=== PATIENT | female | born 1960 | race Caucasian/White ===

== ENCOUNTER 2016-10-04 12:19 | Emergency (ER) | payer BC ==
[2016-10-18 14:40] VITALS: BMI 27.6
== END 2016-10-04 14:42 | disposition home or self-care (01) ==
LOC: D.ER 12:19
DX: J18.9 Pneumonia, unspecified organism (principal); E84.9 Cystic fibrosis, unspecified

== ENCOUNTER → 2016-10-08 08:39 | Outpatient (CLI) | payer BC ==
[~2016-10-08 08:39] MED LIST: EFFEXOR75 MG PO; GEMFIBROZIL600 MG PO; GLUCOPHAGE1000 MG PO; NEURONTIN 300300 MG PO; NORVASC10 MG PO; PLAVIX75 MG PO; VOLTAREN75 MG PO; XODOL 5-300 TA1 EACH PO; ZANAFLEX4 MG PO
[2016-10-18 14:40] VITALS: BMI 27.6
== END | disposition home or self-care (01) ==
LOC: D.MRI 08:39
DX: M54.16 Radiculopathy, lumbar region (principal)

== ENCOUNTER 2016-10-17 11:59 | Inpatient (IN) | payer BC ==
[~2016-10-17] VITALS: Ht 167.6 cm
--- NOTE | ~2016-10-17 | HEMODYNAMI ---
PATIENT:CHRIS ETIENNE MEDICAL RECORD: [id number] : 60 LOCATION:[facility] D.2119 [id number] ADMISSION DATE: 10/18/16 Generatedon:10/23/201614:53 Patient name: CHRIS ETIENNE Patient #: [id number] SSN: [id number] : 1960 Date of study: 10/23/2016 Page: Of Hemodynamic Procedure Report Patient Data Patient Demographics Procedure consent was obtained First Name: CHRIS Gender: Female Last Name: LOWELL : 1960 Middle Initial: E Age: 56 year(s) Patient #: [id number] Race: SSN: [id number] Additional ID: [id number] Contact details Address: [address] [place] [address] [address] State: [place] City: [place] Zip code: [address] Past Medical History Allergies: No known allergies Admission Admission Data Admission Date: 10/18/2016 Admission Time: 17:06 Arrival Date: 10/17/2016 Arrival Time: 21:39 Admit Source: Emergency Insurance Payor: Private department health insurance Room #: D.2119 Height (in.): 66 BSA: 1.87 (m2) Height (cm.): 167.64 BMI: 27.67 (kg/m2) Weight (lbs.): 171.41 Weight (kg.): 77.75 Lab Results Lab Result Date: 10/23/2016 Lab Result Time: 0:00 Biochemistry Name Units Result Min Max BUN mg/dl 17 --(---*)-- 7 18 Creatinine mg/dl 0.7 --(*---)-- 0.6 1.3 CBC Name Units Result Min Max Hemoglobin g/dl 10.8 *-(----)-- 13.5 17.5 Procedure Procedure Types Cath Procedure PCI Procedure Coronary Stent Initial Procedure Description Procedure Date Procedure Date: 10/23/2016 Procedure Start Time: 14:32 Procedure End Time: 14:50 Procedure Staff Name Function Jimy Chamorro MD Performing Physician Alicia Graham RT Scrub Bonnie Michel RN Nurse Aydin Parra RT Monitor Indication Angina Procedure Data Cath Procedure Fluoroscopy Diagnostic fluoroscopy Total fluoroscopy Time: 5.5 time: 5.5 min min Diagnostic fluoroscopy Total fluoroscopy dose: 550 dose: 550 mGy mGy Contrast Material Contrast Material Type Amount (ml) Isovue 300 78 Entry Location Entry Primary Successful Side Size Upsize Upsize Entry Closure Succes sful Closure Location (Fr) 1 (Fr) 2 (Fr) Remarks Device Remarks Femoral Right 6 Fr Exoseal artery Short Procedure Complications No complications Procedure Medications Medication Administration Route Dosage Oxygen 2 l/min Heparin Flush Bag added to field 2 bags (1000units/500ml NS) Lidocaine 2% added to field 20 Versed I.V. 1 mg Fentanyl I.V. 50 mcg Heparin Bolus I.V. 4000 units Lopressor I.V. 5 mg Hemodynamics Rest BSA: 1.87 (m2) HGB: 10.8 (g/dl) O2 Consumption: Estimated: 206.1 (ml/min) O2 Con sumption indexed: Estimated:110.21 (ml/min/m) Heart Rate: 108 (bpm) Snapshots Pre Cath Intra NCS Post Cath Vital Signs Time Heart Resp SPO2 NIBP (mmHg) Rhythm Pain Sedation Rate (ipm) (%) Status Level (bpm) 14:17:44 109 26 99 158/97(117) NSR 0 (11) 10(A) , No pain 14:22:00 108 27 98 158/100(123) NSR 0 (11) 10(A) , No pain 14:26:18 108 30 98 160/97(118) NSR 0 (11) 10(A) , No pain 14:30:34 107 27 98 156/96(138) NSR 0 (11) 10(A) , No pain 14:34:47 94 26 97 153/86(122) NSR 0 (11) 10(A) , No pain 14:39:00 92 26 97 140/88(111) NSR 0 (11) 10(A) , No pain 14:43:10 91 26 97 142/100(110) NSR 0 (11) 10(A) , No pain 14:47:22 95 24 97 150/89(114) NSR 0 (11) 10(A) , No pain Medications Time Medication Route Dose Verified Delivered Reason Notes Effec tiveness by by 14:16:55 Oxygen 2 Jimy Mayecca Per l/min [facility] canales MD 14:17:03 Heparin Flush added 2 Jimy Ahn used for Bag to bags [facility] procedure (1000units/500ml field MD HENDERSON NS) 14:17:10 Lidocaine 2% added 20ml Jimy Ahn used for to vial [facility] procedure field MD HENDERSON 14:27:55 Versed I.V. 1 mg Jimy Bonnie for [facility] Monster Michel RN sedation 14:28:01 Fentanyl I.V. 50 Jimy Mayecca for mcg [facility] Monster Michel RN sedation 14:33:28 Heparin Bolus I.V. 4000 Jimy Mayecca Per units [facility] canales MD 14:36:48 Lopressor I.V. 5 mg Jimy Neilca Per [facility] canales MD Procedure Log Time Note 13:30:49 Bonnie Michel RN sent for patient. Start room use. 13:47:16 Informed consent obtained and on chart 13:47:26 Diagnostic Cath Status : Elective 13:48:45 Indication : Angina 13:48:56 Time tracking: Regular hours 13:49:00 Plan of Care:Hemodynamics will remain stable., Cardiac rhythm will remain stable., Comfort level will be maintained., Respiratory function will remain adequate., Patient/ family verbilizes understanding of procedure., Procedure tolerated without complication., Recovers from procedure without complications.. 13:49:30 Patient received from Med II to CCL 1 Alert and oriented. Tansferred to table in Supine position. 13:49:31 Warm blankets applied, and amos hugger turned on for patient comfort. 13:49:32 Correct patient and procedure confirmed by team. 13:49:32 ECG and BP/O2 sat monitors applied to patient. 14:16:43 Vital chart was started 14:16:55 Oxygen 2 l/min was given by Bonnie Michel RN; Per physician; 14:17:03 Heparin Flush Bag (1000units/500ml NS) 2 bags added to field was given by Jimy Chamorro MD; used for procedure; 14:17:10 Lidocaine 2% 20ml vial added to field was given by Jimy Chamorro MD; used for procedure; 14:17:35 Baseline sample Acquired. 14:17:38 Rhythm: sinus rhythm 14:17:42 Full Disclosure recording started 14:17:55 H&P Date Dictated: 10/17/2016 Within 30 days and on chart.. 14:17:58 Pre-procedure instructions explained to patient. 14:17:58 Pre-op teaching completed and patient verbalized understanding. 14:18:00 Family in waiting room. 14:18:01 Patient NPO since Midnight. 14:18:09 Patient allergic to No known allergies 14:18:11 Is the patient allergic to Iodine/contrast media? No. 14:23:37 Is patient on blood thinner?Yes 14:23:40 ACC The patient was administered the following blood thiners within the last 24 hours: ACCPlavix 14:23:43 Patient diabetic? No. 14:23:44 ----Pre-sedation anethsthesia assessment.---- 14:23:46 Previous problem with sedation/anesthesia? No ? 14:23:48 Snore? Yes 14:23:51 Sleep apnea? No 14:23:53 Deviated septum? No 14:23:54 Opens mouth fully? Yes 14:23:55 Sticks out tongue? Yes 14:23:57 Airway obstruction? No ? 14:24:00 Dentures? Yes ye in 14:24:04 Pre procedure: right dorsailis pedis pulse 1+ Palpable, but thready & weak; easily obliterated 14:24:09 Patient pain scale 0/10 ?. 14:24:52 IV started by Bonnie Michel RN inleft hand with a 22 gauge IV catheter with 0.9% NaCl at 10ml/hr. 14:25:30 Lab Result : BUN 17 mg/dl 14:25:30 Lab Result : Creatinine 0.7 mg/dl 14:25:30 Lab Result : Hemoglobin 10.8 g/dl 14:25:30 Hemodynamic formulas in Rest were re-calculated based on hemoglobin value from 10/23/2016 12:00:00 AM 14:25:54 Lab results completed and on chart. 14:25:59 Left groin area was prepped with chlora-prep and draped in sterile fashion 14:26:00 Alarms reviewed by Roseann Oden 14:: Sharps counted by scrub and verified by R.N. 14:: --------ALL STOP TIME OUT------ :: Final Timeout: patient, procedure, and site verified with staff and physician. All members of the team are in agreement. 14:26:05 Left groin site verified by team. 14:26:08 Physical assessment completed. ASA score P 2 - A patient with mild systemic disease as per Jimy Chamorro MD. 14:26:11 Sedation plan: IV Moderate Sedation Versed, Fentanyl 14:27:55 Versed 1 mg I.V. was given by Bonnie Michel RN; for sedation; 14:: Fentanyl 50 mcg I.V. was given by Bonnie Michel RN; for sedation; 14:32:02 Use device set Femoral PCI 14:32:03 Acist Syringe opened to sterile field. 14:32:03 Acist Hand Control opened to sterile field. 14:32:04 Bag Decanter opened to sterile field. 14:32:04 Cardinal Cath Pack opened to sterile field. 14:32:05 Terumo 6Fr [place] Sheath opened to sterile field. 14:32:05 St Mello 260cm J .035 wire opened to sterile field. 14:32:06 Merit BasixCompak Inflation Kit opened to sterile field. 14:32:07 Acist Manifold opened to sterile field. 14:32:10 IV Extension Set opened to sterile field. 14:32:23 Procedure started. 14:32:57 Local anesthetic to right femoral artery with Lidocaine 2% by Jimy Chamorro MD.INITIAL ACCESS ONLY 14:33:07 A 6 Fr Short sheath was inserted into the Right Femoral artery 14:33:28 Heparin Bolus 4000 units I.V. was given by Bonnie Michel RN; Per physician; 14:33:50 ACC PCI Site: mLAD has 80% stenosis. 14:33:53 ACC Pre-intervention YOUSUF Flow is 3. 14:34:49 6 Fr JL 4 guide catheter was inserted over the wire 14:34:54 COUGAR wire advanced. 14:36:22 Inflation number: 1 A Abington Compare And Share Haralson 3.0 X 15 balloon was prepped and advanced across the Dist LAD, then inflated to 8 RAMÍREZ for 0:10 (min:sec). 14:36:48 Lopressor 5 mg I.V. was given by Bonnie Michel RN; Per physician; 14:37:13 Inflation number: 1 The Abington Compare And Share Haralson 3.0 X 15 balloon was reinflated across the Prox LAD, to 10 RAMÍREZ for 0:20 (min:sec). 14:37:23 Balloon removed over the wire. 14:40:18 Inflation Number: 2 A Medtronic Integrity 3.0 X 15 stent was prepped and advanced across the Dist LAD. The stent was deployed at 12 RAMÍREZ for 0:28 (min:sec). 14:40:45 Stent catheter was removed intact over wire. 14:43:24 Inflation Number: 2 A Medtronic Integrity 3.5 X 15 stent was prepped and advanced across the Prox LAD. The stent was deployed at 12 RAMÍREZ for 0:38 (min:sec). 14:44:17 Stent catheter was removed intact over wire. 14:44:18 Wire removed. 14:44:19 Guide catheter removed. 14:46:26 Sheath removed intact; hemostasis achieved with Exoseal to the Right Femoral artery. 14:46:28 Procedure ended.(Physican Out) 14:46:41 Fluoroscopy time 05.50 minutes. 14:46:46 Flurop Dose total: 550 14:46:46 Fluoroscopy dose: 550 mGy 14:48:27 Contrast amount:Isovue 300 78ml. 14:48:28 Sharps counted by scrub and verified by R.N. 14:48:29 Insertion/operative site no bleeding no hematoma. 14:48:32 Post-op/insertion site Left Femoral artery dressed using a 4 x 4 and Tegaderm. 14:48:39 Post left femerol artery:stable 14:48:40 Post Procedure Pulses reassessed and unchanged 14:48:42 Post procedure: left dorsailis pedis pulse 1+ Palpable, but thready & weak; easily obliterated. 14:48:48 Post procedure rhythm: sinus tachycardia 14:48:50 Post procedure instruction explained to patient.Patient verbalizes understanding. 14:49:11 Procedure type changed to Cath procedure, PCI procedure, Coronary Stent Initial 14:49:16 Procedure and supply charges have been captured, reviewed, submitted and are correct. 14:49:26 Cordis 6Fr Exoseal opened to sterile field. 14:50:07 Tegaderm 4 x 4 opened to sterile field. 14:50:09 Medtronic Launcher 6Fr JL 4.0 guide catheter opened to sterile field. 14:50:18 Valdivia [place] 300cm 0.014 guide wire opened to sterile field. 14:50:25 Procedure Complication : No complications 14:50:36 Vital chart was stopped 14:50:36 See physician's report for complete and final results. 14:50:38 Report given to PCU. 14:50:42 Patient transfered to PCU with Bed. 14:50:43 Procedure ended. 14:50:43 Full Disclosure recording stopped 14:50:49 End room use (Document Last) Intervention Summary Intervention Notes Time ActionType Lesion and Equipment Action# Pressure Duration Attributes Used 14:36:22 Inflate Dist LAD Abington 1 8 00:10 balloon Sci Haralson 3.0 X 15 balloon 14:37:13 Reinflate Prox LAD Abington 1 10 00:20 balloon Sci Haralson 3.0 X 15 balloon 14:40:18 Place stent Dist LAD Medtronic 2 12 00:28 Integrity 3.0 X 15 stent 14:43:24 Place stent Prox LAD Medtronic 2 12 00:38 Integrity 3.5 X 15 stent Device Usage Item Name Manufacture Quantity Catalog Number Hospital Part Current Mini mal Lot# / Charge Number Stock Stock Serial# Code Acist Acist 1 [id number] [id number] [id number] [id number] 20 Syringe Medical Systems Inc Acist Hand Acist 1 21582 215371 823124 963329 5 Control Medical Systems Inc Bag Microtek 1 2002S 140653 23743 839736 5 DecKynetx Medical Inc. Cardinal Cardinal [address] 785828 48240 545412 5 Cath Trendzo Terumo 6Fr Terumo 1 [id number] 243634 210491 980878 [address] Mello St Mello 1 906524 100728 189531 486162 30 260cm J .035 wire Merit Merit 1 [id number] 292738 624561 967762 15 Supportie Medical Inflation Kit Acist Acist 1 49995 822290 173019 302113 5 Manifold Medical Systems Inc IV Hospira 1 21359-77 518412 03455 708760 5 Extension Set Abington Sci Abington 1 [id number] 133806 159238 448127 1 [id number] Haralson Scientific 3.0 X 15 balloon Medtronic Medtronic 1 [id number] 179705 298414 249789 0 [id number] Integrity 3.0 X 15 stent Medtronic Medtronic 1 [id number] 041120 510983 659137 8 [id number] Integrity 3.5 X 15 stent Cordis 6Fr Cardinal 1 EX600 022047 524650 933371 10 [facility] Tegade 4 3M 1 1626W 923161 751178 971242 5 x 4 Medtronic Medtronic 1 [id number] 430785 62743 280732 1 Launcher 6Fr JL 4.0 guide catheter Valdivia Valdivia 1 [id number] 842998 568094 059262 1 [place] Vascular 300cm 0.014 guide wire Signature Audit [place] Stage Time Signature Unsigned Intra-Procedure 10/23/2016 Aydin Parra 2:53:34 PM RT(R) Signatures Monitor : Aydin Parra RT Signature : Date : Time : [place] [address] [place] [address]
--- NOTE | ~2016-10-17 | HEMODYNAMI ---
PATIENT:CHRIS ETIENNE MEDICAL RECORD: [id number] : 60 LOC[id number] ADMISSION DATE: 10/17/16 Generatedon:10/18/201614:57 Patient name: CHRIS ETIENNE Patient #: [id number] SSN: [id number] : 1960 Date of study: 10/18/2016 Page: Of Hemodynamic Procedure Report Patient Data Patient Demographics Procedure consent was obtained First Name: CHRIS Gender: Female Last Name: LOWELL : 1960 Middle Initial: E Age: 56 year(s) Patient #: [id number] Race: SSN: [id number] Additional ID: [id number] Contact details Address: [address] [place] [address] [address] State: [place] City: [place] Zip code: [address] Past Medical History Allergies: No known allergies Admission Admission Data Admission Date: 10/17/2016 Admission Time: 21:39 Arrival Date: 10/17/2016 Arrival Time: 21:39 Admit Source: Emergency Insurance Payor: Private department health insurance Room #: D.2119 Height (in.): 66 BSA: 1.87 (m2) Height (cm.): 167.64 BMI: 27.67 (kg/m2) Weight (lbs.): 171.41 Weight (kg.): 77.75 Lab Results Lab Result Date: 10/18/2016 Lab Result Time: 0:00 Biochemistry Name Units Result Min Max Creatinine mg/dl 1.5 --(----)-* 0.6 1.3 Troponin l ng/ml 2.176 --(----)-* 0 0.06 CBC Name Units Result Min Max Hemoglobin g/dl 12.2 *-(----)-- 13.5 17.5 Procedure Procedure Types Cath Procedure Diagnostic Procedure [facility] w/Coronaries PCI Procedure Coronary Stent Initial Procedure Description Procedure Date Procedure Date: 10/18/2016 Procedure Start Time: 14:25 Procedure End Time: 14:51 Procedure Staff Name Function Jimy Chamorro MD Performing Physician Gretel Gaspar RT Scrub Maday Meza RN Nurse Oliver Khalil RN Reference Library Assistant Delfino Al RT Monitor Alicia Graham RT Monitor Procedure Data Cath Procedure Fluoroscopy Diagnostic fluoroscopy Total fluoroscopy Time: 7.2 time: 7.2 min min Diagnostic fluoroscopy Total fluoroscopy dose: 663 dose: 663 mGy mGy Contrast Material Contrast Material Type Amount (ml) Isovue 370 130 Entry Location Entry Primary Successful Side Size Upsize Upsize Entry Closure Succes sful Closure Location (Fr) 1 (Fr) 2 (Fr) Remarks Device Remarks Femoral Right 5 Fr 6 Fr Exoseal artery Short Estimated blood loss: 5 ml Diagnostic catheters Device Type Used For End Catheter Placement Cordis 5Fr JL 4.0 Procedure Catheter (MP) Cordis 5Fr 3DRC Catheter Procedure (MP) Cordis 5Fr Pigtail Procedure Catheter (MP) Procedure Complications No complications Procedure Medications Medication Administration Route Dosage Oxygen NC 2 l/min Lidocaine 2% added to field 20 Heparin Flush Bag added to field 2 bags (1000units/500ml NS) 0.9% NaCl I.V. 100 ml/hr Versed I.V. 2 mg Fentanyl I.V. 100 mcg Versed I.V. 1 mg Fentanyl I.V. 50 mcg Heparin Bolus I.V. 5000 units Integrilin (Bolus I.V. 7.3 ml 2mg/ml) Fentanyl I.V. 50 mcg Versed I.V. 1 mg Fentanyl I.V. 50 mcg Plavix P.O. 600 mg Hemodynamics Rest BSA: 1.87 (m2) HGB: 12.2 (g/dl) O2 Consumption: Estimated: 200.41 (ml/min) O2 Co nsumption indexed: Estimated:107.17 (ml/min/m) Heart Rate: 100 (bpm) Pressure Samples Time Site Value (mmHg) Purpose Heart Use Rate(bpm) 14:32 LV 111/15,21 Snapshot 103 Gradients Valve Time Site Site Mean SEP/DFP Peak To Heart Use 1 2 (mmHg) (sec/min) Peak Rate (mmHg) (bpm) Aortic 14:33 LV AO 103 Snapshots Pre Cath Intra NCS Post Cath Vital Signs Time Heart Resp SPO2 etCO2 [id number] NIBP (mmHg) Rhythm Pain Sedation Rate (ipm) (%) (mmHg) (mmHg) Status Level (bpm) 13:23:27 97 22 94 0 0 138/85(106) NSR 0 (11) 10(A) , No pain 13:27:41 100 25 94 0 0 133/89(103) NSR 0 (11) 10(A) , No pain 13:31:53 98 21 93 0 0 134/86(106) NSR 0 () 10(A) , No pain 13:36:09 98 20 95 0 0 130/79(99) NSR 0 () 10(A) , No pain 13:40:19 99 24 94 0 0 131/83(98) NSR 0 () 10(A) , No pain 13:44:26 100 23 95 0 0 125/82(104) NSR 0 () 10(A) , No pain 13:48:36 102 23 95 0 0 129/83(97) NSR 0 () 10(A) , No pain 13:52:44 103 23 94 0 0 125/82(97) NSR 0 () 10(A) , No pain 13:56:58 102 23 94 0 0 123/79(103) NSR 0 () 10(A) , No pain 14:01:08 101 22 95 0 0 124/81(97) NSR 0 () 10(A) , No pain 14:05:20 102 23 96 0 0 123/79(95) NSR 0 () 10(A) , No pain 14:09:30 102 24 95 0 0 122/78(91) NSR 0 () 10(A) , No pain 14:13:40 101 25 96 0 0 120/76(94) NSR 0 (11) 10(A) , No pain 14:17:51 100 24 96 0 0 120/76(94) NSR 0 (11) 10(A) , No pain 14:21:59 99 24 95 0 0 116/76(98) NSR 0 (11) 9(A) , No pain 14:26:09 98 24 96 0 0 123/80(96) NSR 0 (11) 9(A) , No pain 14:30:17 99 16 96 0 0 130/88(105) NSR 0 (11) 9(A) , No pain 14:34:29 104 17 96 0 0 148/91(115) NSR 0 (11) 9(A) , No pain 14:38:41 99 23 94 0 0 127/81(98) NSR 0 (11) 9(A) , No pain 14:42:55 96 21 94 0 0 114/75(93) NSR 0 (11) 9(A) , No pain 14:47:05 96 21 95 0 0 117/74(89) NSR 0 (11) 9(A) , No pain 14:51:13 97 20 95 0 0 127/85(102) NSR 0 (11) 10(A) , No pain Medications Time Medication Route Dose Verified Delivered Reason Notes Effectiveness by by 13:27:32 Oxygen NC 2 Jimy Buffie used for l/min St. Monster Meza RN procedure 13:27:39 Lidocaine 2% added 20ml Jimy Jimy for local to vial [facility] anesthetic field MD HENDERSON 13:27:44 Heparin Flush added 2 Jimy Jimy used for Bag to bags [facility] procedure (1000units/500ml field MD HENDERSON NS) 13:27:54 0.9% NaCl I.V. 100 Jimy Buffie Per physician ml/hr [facility]. Monster Meza RN, MD 14:17:55 Versed I.V. 2 mg Jimy Buffie for sedation [facility]. Monster Meza RN, MD 14:18:02 Fentanyl I.V. 100 Jimy Buffie for sedation mcg [facility] Monster Meza RN, MD 14:26:50 Versed I.V. 1 mg Jimy Buffie for sedation [facility]. Monster Meza RN, MD 14:26:54 Fentanyl I.V. 50 Jimy Buffie for sedation mcg [facility] Monster Meza RN, MD 14:34:41 Heparin Bolus I.V. 5000 Jimy Buffie for verifi ed units [facility]. Monster Meza RN anticoagulation with dr MD santiago 14:35:51 Integrilin I.V. 7.3 Jimy Buffie for (Bolus 2mg/ml) ml St. Monster Meza RN antiplatelet MD therapy 14:36:43 Fentanyl I.V. 50 Jimy Buffie for sedation mcg [facility] Monster Meza RN, MD 14:36:54 Versed I.V. 1 mg Jimy Buffie for sedation [facility]. Monster Meza RN, MD 14:38:40 Fentanyl I.V. 50 Jimy Nassar for sedation mcg [facility] Monster Meza RN, MD 14:52:03 Plavix P.O. 600 Jimy Nass[address] for mg [facility] Monster Meza RN antiplatelet MD therapy Procedure Log Time Note 12:49:02 Admit Source: Emergency department 12:49:08 Oliver Khalil RN sent for patient. Start room use. 12:49:09 Time tracking: Regular hours 12:49:13 Plan of Care:Hemodynamics will remain stable., Cardiac rhythm will remain stable., Comfort level will be maintained., Respiratory function will remain adequate., Patient/ family verbilizes understanding of procedure., Procedure tolerated without complication., Recovers from procedure without complications.. 12:51:36 ACC Patient presents with Non-STEMI CCS Anginal Class 3--Marked limitation of physical activity, angina occurs with ordinary activity.. 12:51:40 Diagnostic Cath status Urgent 12:51:46 ACCPatient has been prescribed/administered the following anti-anginal medication within the last 2 weeks: None 12:51:57 H&P Date Dictated: 10/18/2016 Within 30 days and on chart.. 12:54:11 Patient allergic to No known allergies 12:54:16 Insurance Payor : Private health insurance 12:54:23 Patient Height : 66 cm 12:54:28 Patient Weight : 171.41 kg 12:55:45 Lab Result : Hemoglobin 12.2 g/dl 12:55:45 Lab Result : Troponin l 2.176 ng/ml 12:55:45 Lab Result : Creatinine 1.5 mg/dl 12:56:03 ACC The patient was administered the following blood thiners within the last 24 hours: None 13:08:53 Patient received from PCU to CCL 2 Alert and oriented. Tansferred to table in Supine position. 13:08:54 Warm blankets applied, and amos hugger turned on for patient comfort. 13:08:54 Correct patient and procedure confirmed by team. 13:08:55 Signed procedure consent form obtained from patient. 13:08:56 ECG and BP/O2 sat monitors applied to patient. 13:08:57 Full Disclosure recording started 13:18:10 Vital chart was started 13:22:27 Baseline sample Acquired. 13:22:32 Rhythm: sinus tachycardia 13:22:35 Pre-procedure instructions explained to patient. 13:22:36 Pre-op teaching completed and patient verbalized understanding. 13:22:47 Family in patients room. 13:22:49 Patient NPO since Midnight. 13:22:52 Is the patient allergic to Iodine/contrast media? No. 13:22:59 Is patient on blood thinner?No 13:23:02 Patient diabetic? Yes. 13:23:03 If diabetic: On Metformin? Yes 13:25:48 Previous problem with sedation/anesthesia? No ? 13:25:50 Snore? Yes 13:25:51 Sleep apnea? No 13:25:52 Deviated septum? No 13:25:53 Opens mouth fully? Yes 13:25:54 Sticks out tongue? Yes 13:26:30 Airway obstruction? Yes restrictive airway diesease 13:26:33 Dentures? No ? 13:26:38 Pre procedure: right dorsailis pedis pulse 1+ Palpable, but thready & weak; easily obliterated 13:26:40 Patient pain scale 0/10 ?. 13:26:50 IV patent on arrival in left forearm with 0.9% NaCl at [facility]. 13:26:54 Lab results completed and on chart. 13:26:59 Right groin area was prepped with chlora-prep and draped in sterile fashion 13:27:00 Alarms reviewed by R. N. 13:27:01 Sharps counted by scrub and verified by R.N. 13:27:20 Use device set Femoral Dx 13:27:21 Tegaderm 4 x 4 opened to sterile field. 13:27:22 Acist Syringe opened to sterile field. 13:27:23 Bag Decanter opened to sterile field. 13:27:23 Cardinal Cath Pack opened to sterile field. 13:27:26 Acist Manifold opened to sterile field. 13:27:27 Acist Hand Control opened to sterile field. 13:27:28 Terumo 5Fr [place] Sheath opened to sterile field. 13:27:28 St Mello 260cm J .035 wire opened to sterile field. 13:27:29 Cordis Infinity 5Fr Multipack catheter opened to sterile field. 13:27:32 Oxygen 2 l/min NC was given by Maday Meza RN; used for procedure; 13:27:39 Lidocaine 2% 20ml vial added to field was given by Jimy Chamorro MD; for local anesthetic; 13:27:44 Heparin Flush Bag (1000units/500ml NS) 2 bags added to field was given by Jimy Chamorro MD; used for procedure; 13:27:54 0.9% NaCl 100 ml/hr I.V. was given by Maday Meza RN; Per physician; 13:29:20 Physician paged 13:33:02 If on Metformin: Last Dose? 10/17/2016 13:37:03 Zero performed for pressure channel P1 13:37:13 Zero performed for pressure channel P1 14:17:30 Physician arrived 14:17:30 --------ALL STOP TIME OUT------ 14:17:31 Final Timeout: patient, procedure, and site verified with staff and physician. All members of the team are in agreement. 14:17:33 Right groin site verified by team. 14:17:35 Physical assessment completed. ASA score P 2 - A patient with mild systemic disease as per Jimy Chamorro MD. 14:17:39 Sedation plan: IV Moderate Sedation Versed, Fentanyl 14:17:55 Versed 2 mg I.V. was given by Maday Meza RN; for sedation; 14:18:02 Fentanyl 100 mcg I.V. was given by Maday Meza RN; for sedation; 14:24:58 Procedure started. 14:25:12 Local anesthetic to right femoral artery with Lidocaine 2% by Jimy Chamorro MD.INITIAL ACCESS ONLY 14:25:30 A 5 Fr sheath was inserted into the Right Femoral artery 14:26:50 Versed 1 mg I.V. was given by Maday Meza RN; for sedation; 14:26:54 Fentanyl 50 mcg I.V. was given by Maday Meza RN; for sedation; 14:27:11 A Cordis 5Fr JL 4.0 Catheter (MP) was advanced over the wire and used for Procedure. 14:27:45 LCA angiography performed. 14:28:59 Catheter removed. 14:29:10 A Cordis 5Fr 3DRC Catheter (MP) was advanced over the wire and used for Procedure. 14:30:38 RCA angiography performed. 14:30:46 Catheter removed. 14:31:56 A Cordis 5Fr Pigtail Catheter (MP) was advanced over the wire and used for Procedure. 14:32:29 LV gram done using TRINIDAD 14:32:31 LV hemodynamics recorded. 14:32:39 LV Function : Normal 14:32:46 EF : 55 % 14:33:52 Terumo 6Fr [place] Sheath opened to sterile field. 14:33:53 Valdivia Whisper J 300cm 0.014 guide wire opened to sterile field. 14:33:56 Catheter removed. 14:33:59 Proceeding to intervention. 14:34:23 Medtronic Launcher 6Fr JL 4.0 guide catheter opened to sterile field. 14:34:38 Ultragenyx Pharmaceutical BasixCompak Inflation Kit opened to sterile field. 14:34:41 Heparin Bolus 5000 units I.V. was given by Maday Meza RN; for anticoagulation; verified with dr santiago 14:35:14 Sheath upsized to a 6 Fr Short. 14:35:51 Integrilin (Bolus 2mg/ml) 7.3 ml I.V. was given by Maday Meza RN; for antiplatelet therapy; 14:35:52 6 Fr JL 4 guide catheter was inserted over the wire 14:36:43 Fentanyl 50 mcg I.V. was given by Maday Meza RN; for sedation; 14:36:54 Versed 1 mg I.V. was given by Maday Meza RN; for sedation; 14:37:41 WHISPER wire advanced. 14:38:40 Fentanyl 50 mcg I.V. was given by Maday Meza RN; for sedation; 14:38:41 Inflation number: 1 A [place] Sci Lipscomb 3.0 X 15 balloon was prepped and advanced across the Mid CX, then inflated to 12 RAMÍREZ for 0:30 (min:sec). 14:40:04 Balloon removed over the wire. 14:42:30 Inflation number: 2 A [place] Sci Lipscomb 2.0 X 15 balloon was prepped and advanced across the Mid CX, then inflated to 8 RAMÍREZ for 0:30 (min:sec). 14:43:15 Inflation number: 3 The [place] Sci Lipscomb 2.0 X 15 balloon was reinflated across the Mid CX, to 10 RAMÍREZ for 0:30 (min:sec). 14:43:46 Balloon removed over the wire. 14:46:21 Inflation Number: 4 A Medtronic Integrity 3.0 X 18 stent was prepped and advanced across the Mid CX. The stent was deployed at 14 RAMÍREZ for 0:30 (min:sec). 14:47:37 Wire removed. 14:47:38 Guide catheter removed. 14:49:28 Cordis 6Fr Exoseal opened to sterile field. 14:49:45 Sheath removed intact; hemostasis achieved with Exoseal to the Right Femoral artery. 14:49:47 Procedure ended.(Physican Out) 14:50:04 Fluoroscopy time 07.20 minutes. 14:50:08 Fluoroscopy dose: 663 mGy 14:50:08 Flurop Dose total: 663 14:50:13 Contrast amount:Isovue 370 130ml. 14:50:15 Sharps counted by scrub and verified by R.N. 14:50:17 Insertion/operative site no bleeding no hematoma. 14:50:19 Post-op/insertion site Right Femoral artery dressed using a 4 x 4 and Tegaderm. 14:50:22 Post right femoral artery:stable 14:50:25 Post Procedure Pulses reassessed and unchanged 14:50:28 Post procedure rhythm: unchanged. 14:50:34 Estimated blood loss: 5 ml 14:50:36 Post procedure instruction explained to patient.Patient verbalizes understanding. 14:50:37 Patient needs reinforcement of post procedure teaching. 14:50:51 Procedure type changed to Cath procedure, Diagnostic procedure, LHC, LHC w/Coronaries, PCI procedure, Coronary Stent Initial 14:50:52 Procedure and supply charges have been captured, reviewed, submitted and are correct. 14:50:57 Procedure Complication : No complications 14:50:59 Vital chart was stopped 14:50:59 See physician's report for complete and final results. 14:51:04 Report given to [facility]. 14:51:06 Patient transfered to [facility] with Stretcher. 14:51:08 Procedure ended. 14:51:08 Full Disclosure recording stopped 14:51:32 ACC-PCI Only Patient was given prescriptions, or instructed by Jimy Chamorro MD to start/continue the following medications upon discharge: Plavix 14:51:33 End room use (Document Last) 14:52:03 Plavix 600 mg P.O. was given by Maday Meza RN; for antiplatelet therapy; 14:52:48 Arrival Date: 10/17/2016 9:39:00 PM Intervention Summary Intervention Notes Time ActionType Lesion and Equipment Action# Pressure Duration Attributes Used 14:38:41 Inflate Mid CX [place] 1 12 00:30 balloon Sci Lipscomb 3.0 X 15 balloon 14:42:30 Inflate Mid CX [place] 2 8 00:30 balloon Sci Lipscomb 2.0 X 15 balloon 14:43:15 Reinflate Mid CX [place] 3 10 00:30 balloon Sci Lipscomb 2.0 X 15 balloon 14:46:21 Place stent Mid CX Medtronic 4 14 00:30 Integrity 3.0 X 18 stent Device Usage Item Name Manufacture Quantity Catalog Number Hospital Part Current Mini mal Lot# / Charge Number Stock Stock Serial# Code Tegaderm 4 3M 1 [id number] 086594 866732 5 x 4 Acist Acist 1 16642 630793 776291 840987 20 Syringe Medical Systems Inc Bag Microtek 1 2002S 672417 84762 126235 5 Decanter Medical Inc. Cardinal Cardinal 1 [id number] 585431 84144 903626 5 Cath Pack Health Acist Acist 1 25475 218843 901096 457756 5 Broadersheet Medical Systems Inc Acist Hand Acist 1 25079 831606 381547 392059 5 AJ Consulting Medical Systems Inc Terumo 5Fr Terumo 1 [id number] 288891 028455 967987 [address] St Mello 1 526891 015410 173285 785283 30 260cm J .035 wire Cordis Cardinal 1 [id number] 648508 45238 766193 30 Infinity Health 5Fr Multipack catheter Cordis 5Fr Cardinal 1 [id number] 5 JL 4.0 Health Catheter (MP) Cordis 5Fr Cardinal 1 424716 5 3DRC Health Catheter (MP) Cordis 5Fr Cardinal 1 639246 5 Pigtail Health Catheter (MP) Terumo 6Fr Terumo 1 [id number] 317266 243506 985375 40 [place] Sheath Valdivia Valdivia 1 [id number] 796305 071101 964713 5 Whisper J Vascular 300cm 0.014 guide wire Medtronic Medtronic 1 [id number] 392505 71966 643486 1 Launcher 6Fr JL 4.0 guide catheter Merit Merit 1 NS2329 812805 802175 744733 15 Alces Technology Medical Inflation Kit [place] Sci Brookings 1 [id number] 004335 681807 621988 1 [id number] Lipscomb Scientific 3.0 X 15 balloon [place] Sci [place] 1 [id number] 228287 768499 705843 1 [id number] Lipscomb Scientific 2.0 X 15 balloon Medtronic Medtronic 1 [id number] 564379 262438 408766 3 [id number] Integrity 3.0 X 18 stent Cordis 6Fr Cardinal 1 EX600 375199 590956 035730 10 [facility] Health Signature Audit [place] Stage Time Signature Unsigned Intra-Procedure 10/18/2016 Alicia Graham 2:57:05 PM RT(R) Signatures Monitor : Delfino lA RT Signature : Date : Time : Monitor : Alicia Graham RT Signature : Date : Time : [place] [id number] SHAKEEL CASTILLO [id number]
[2016-10-17 15:51] LABS: BASOPHILS 0.2 % (0.0-2.0); EOSINOPHILS 0.1 % (0-7); HEMATOCRIT 36.7 % (36.0-48.0); HEMOGLOBIN 13.1 g/dL (12-16); IMMATURE GRANULOCYTES 0.8 % (0-5); LYMPHOCYTES 5.2 % (15-50); MCH 30.4 pg (26.0-34.0); MCHC 35.7 g/dL (31.0-37.0); MCV 85.2 fL (80.0-100.0); MEAN PLATELET VOLUME 11.5 fL (7.4-10.4); MONOCYTES 0.6 % (2-11); NEUTROPHILS 93.1 % (40-80); PLATELET COUNT 176 10x3/uL (130-400); RBC 4.31 10x6/uL (4.00-5.40); RDW 12.5 % (11.5-14.5); WBC 9.8 10x3/uL (4.8-10.8)
[2016-10-17 17:12] LABS: ALBUMIN 2.3 g/dL (3.4-5.0); ANION GAP 19.6 mmol/L (8-16); BILIRUBIN - TOTAL 0.59 mg/dL (0.2-1.3); CALCIUM 9.4 mg/dL (8.5-10.1); CARBON DIOXIDE 20.9 mmol/L (21.0-32.0); CREATININE - SERUM 1.7 mg/dL (0.6-1.3); POTASSIUM - SERUM 4.5 mmol/L (3.5-5.1); PROTEIN - SERUM 6.9 g/dL (6.4-8.2)
[2016-10-17 19:13] LABS: APPEARANCE CLEAR (CLEAR); BILIRUBIN NEGATIVE (NEGATIVE); COLOR YELLOW (YELLOW); GLUCOSE 1000 mg/dL (NEGATIVE); KETONE NEGATIVE (NEGATIVE); LEUKOCYTE ESTERASE NEGATIVE (NEGATIVE); NITRITE NEGATIVE (NEGATIVE); PROTEIN TRACE mg/dL (NEGATIVE); SPECIFIC GRAVITY 1.015 (1.005-1.020); UROBILINOGEN NORMAL (NORMAL)
[2016-10-17 19:14] LABS: WHITE CELLS - URINE 0-5 /hpf (0-5)
[2016-10-17 19:15] LABS: BACTERIA MODERATE /hpf (NONE SEEN); RED CELLS - URINE OCC /hpf (0-5); YEAST >1+ /hpf (NONE SEEN)
[2016-10-18] VITALS (10 sets, daily range): BP systolic 129–149; BP diastolic 70–89; Ht 167.6 cm
[2016-10-18] MEDS ORDERED: GLUCOPHAGE1000 MG PO (00:20)
[2016-10-18] MEDS ORDERED: GEMFIBROZIL600 MG PO (00:21)
[2016-10-18] MEDS ORDERED: EFFEXOR75 MG PO (00:21)
[2016-10-18] MEDS ORDERED: XODOL 5-300 TA1 EACH PO (00:22)
[2016-10-18] MEDS ORDERED: ZANAFLEX4 MG PO (00:23)
[2016-10-18] MEDS ORDERED: NORVASC10 MG PO (00:23)
[2016-10-18] MEDS ORDERED: VOLTAREN75 MG PO (00:24)
[2016-10-18] MEDS ORDERED: NEURONTIN 300300 MG PO (00:25)
--- NOTE | 2016-10-18 01:29 | NUR ---
RECEIVED TO 2118 FROM ER VIA STRETCHER, AAOX3, SKIN WARM AND DRY, RESP UNLABORED, IV PATENT TO LEFT FOREARM, DENIES NEEDS, NO DISTRESS NOTED
--- NOTE | 2016-10-18 04:25 | NUR ---
BARK PRESS OPERATOR AT BEDSIDE TO OBTAIN VITALS, CALL LIGHT IN REACH. WILL CONTINUE WITH PLAN OF CARE.
[2016-10-18 07:23] LABS: BASOPHILS 0.1 % (0.0-2.0); EOSINOPHILS 0.1 % (0-7); HEMATOCRIT 34.5 % (36.0-48.0); HEMOGLOBIN 12.2 g/dL (12-16); IMMATURE GRANULOCYTES 2.3 % (0-5); MCH 30.1 pg (26.0-34.0); MCHC 35.4 g/dL (31.0-37.0); MCV 85.2 fL (80.0-100.0); MONOCYTES 1.1 % (2-11); NEUTROPHILS 91.4 % (40-80); PLATELET COUNT 186 10x3/uL (130-400); RBC 4.05 10x6/uL (4.00-5.40); RDW 12.5 % (11.5-14.5); WBC 10.3 10x3/uL (4.8-10.8)
[2016-10-18 07:29] LABS: ANION GAP 18.5 mmol/L (8-16); CALCIUM 9.5 mg/dL (8.5-10.1); CARBON DIOXIDE 19.8 mmol/L (21.0-32.0); CREATININE - SERUM 1.5 mg/dL (0.6-1.3); POTASSIUM - SERUM 4.3 mmol/L (3.5-5.1)
--- NOTE | 2016-10-18 07:30 | NUR ---
RECEIVED PT IN BED EYES CLOSED RESP UNLABORED NAD NOTED
[2016-10-18 10:54] LABS: HEMOGLOBIN A1C 9.2 % (4.8-6.0)
--- NOTE | 2016-10-18 13:10 | NUR ---
PT TO SEDIMENTATIONIST VIA BED IN STABLE CONDITION
--- NOTE | 2016-10-18 20:14 | NUR ---
RESUMED CARE OF PT, LYING IN BED WITH EYES CLOSED RESPIRATIONS EVEN AND UNLABORED ON 2LPM VIA NC. 97 SR ON TELEMETRY. LEFT FOREARM INFUSING NS WITH 20K @ 100. RIGHT GROIN C/D/I WITH PEDAL PULSES [place]. FAMILY AT BEDSIDE, CALL LIGHT IN REACH. WILL CONTINUE TO MONITOR. SEE NURSE ASSESSMENT.
[2016-10-19 00:36] VITALS: BP 117/71
--- NOTE | 2016-10-19 04:02 | NUR ---
NARROW FABRICS WEAVER AT BEDSIDE TO OBTAIN VITALS, CALL LIGHT IN REACH. WILL CONTINUE TO MONITOR.
[2016-10-19 04:57] VITALS: BP 139/73
[2016-10-19 06:25] LABS: BASOPHILS 0.1 % (0.0-2.0); EOSINOPHILS 0.1 % (0-7); HEMATOCRIT 31.8 % (36.0-48.0); HEMOGLOBIN 11.1 g/dL (12-16); IMMATURE GRANULOCYTES 8.9 % (0-5); LYMPHOCYTES 6.1 % (15-50); MCH 30.4 pg (26.0-34.0); MCHC 34.9 g/dL (31.0-37.0); MCV 87.1 fL (80.0-100.0); MONOCYTES 2.9 % (2-11); NEUTROPHILS 81.9 % (40-80); PLATELET COUNT 220 10x3/uL (130-400); RBC 3.65 10x6/uL (4.00-5.40); RDW 12.9 % (11.5-14.5)
--- NOTE | 2016-10-19 06:42 | NUR ---
NO CHANGES FROM PREVIOUS ASSESSMENT. CALL LIGHT IN REACH.
[2016-10-19 06:47] LABS: ANION GAP 15.9 mmol/L (8-16); CALCIUM 9.1 mg/dL (8.5-10.1); CARBON DIOXIDE 21.3 mmol/L (21.0-32.0); POTASSIUM - SERUM 4.2 mmol/L (3.5-5.1)
[2016-10-19 06:51] LABS: CREATININE - SERUM 1.1 mg/dL (0.6-1.3)
[2016-10-19 08:04] VITALS: BP 124/68
--- NOTE | 2016-10-19 08:15 | NUR ---
EATING BREAKFAST NAD NOTED DENIES ANY NEEDS AT THIS TIME
[2016-10-19 11:48] VITALS: BP 101/56
[2016-10-19 15:46] VITALS: BP 115/69
--- NOTE | 2016-10-19 16:30 | NUR ---
Patient Name: CHRIS ETIENNE Admission Status: ER Accout number: [id number] Admission Date: 10-18-2016 : 1960 Admission Diagnosis:CHEST PAIN, UNSPECIFIED Attending: DARVIN Current LOS: 1 Anticipated DC Date: 10-22-2016 Planned Disposition: [facility] Facility Primary Insurance: c-[id number] EXCHANGE PLANNED EXTERNAL PROVIDER: [facility] OR [facility] SKILLED RE[facility]AB BED Discharge Planning Comments: * Is the patient Alert and Oriented? Yes 0 * How many steps to enter\exit or inside your home? 4 0 * PCP NAILA GUERRA NP AT DR. KILO MAJOR 0 * Pharmacy [facility] 0 * Preadmission Environment Home with Family 0 * ADLs Partial Dependent 0 * Partial ADLs (Assistance needed) Ambulation Transfers 0 * Equipment None 0 * Other Equipment NO MEDICAL EQUIPMENT PROVIDER PREFERENCE 0 * List name and contact numbers for known caregivers / representatives who currently or will assist patient after discharge: IFEANYI PEGUERO, DAUGHTER, 0 * Community resources currently utilized None 0 * Please name any agencies selected above. NONE 0 * Additional services required to return to the preadmission environment? Yes * Can the patient safely return to the preadmission environment? Yes 0 * Has this patient been hospitalized within the prior 30 days at any hospital? No 0 CM MET WITH PT IN ROOM TO DISCUSS DISCHARGE PLANNING AND NEEDS. PT REPORTS LIVING AT HOME DEPENDENT UPON HER ADULT DAUGHTER TO ASSIST WITH GETTING OUT OF BED AND WALKING SOMETIMES. PT HAS A BORROWED WALKER THAT SHE HAS BEEN USING PRIOR TO HOSPITALIZATION AND NO MEDICAL EQUIPMENT PROVIDER. PT HAS NO OUTSIDE SERVICES ASSISTING IN THE HOME. CM DISCUSSED AVAILABILITY OF HOME HEALTH, REHAB SERVICES AND MEDICAL EQUIPMENT. PT REPORTS HER FAMILY WILL PICK HER UP FOR DISCHARGE HOME. PT DOES NOT THINK SHE CAN PARTICIPATE IN THREE HOURS OF PROGRESSIVE THERAPY PER DAY AND DOES NOT FEEL SHE IS DOING WELL ENOUGH TO GO HOME. CM DISCUSSED AVAILABLE CARE HOME REHAB FACILITIES. PT DID NOT WANT TO MAKE A DECISION WITHOUT SPEAKING TO FAMILY. CM LEFT SNF AND CM INFORMATION. CM RECEIVED REQUEST TO SPEAK WITH FAMILY LATER IN THE DAY, MET WITH PT AND FAMILY IN ROOM. PT CHOSE [facility] AND [facility]. CHOICE LETTER SIGNED. CM EXPLAINED THAT FACILITY WILL HAVE TO BE WILLING TO ACCEPT AND PT'S INSURANCE COMPANY WILL HAVE TO NEGOTIATE A RATE FOR PT'S REHAB CARE PRIOR TO ACCEPTANCE IN ANY CARE HOME FACILITY. CM CALLED [facility], , SPOKE TO FEDE WHO REPORTS BED AVAILABLE ON SATURDAY OR SATURDAY AND THEY HAVE NEGOTIATED WITH PT'S INSURANCE COMPANY IN THE PAST. CM FAXED REFERRAL TO [facility] AND [facility], . CM CALLED [facility], , SPOKE TO CASSIE WHO REPORTS BED AVAILABLE AND SHE HAS NEGOTIATED RATE WITH PT'S INSURANCE IN THE PAST. CM FAXED REFERRAL TO [facility] AT [phone]. CM WAITING ADMISSION DETERMINATIONS AND INSURANCE NEGOTIATED RATES/ACCEPTANCE FROM [facility]. Software Engineer Web Services: Fransico Chappell
--- NOTE | 2016-10-19 17:40 | NUR ---
IN AND OUT CATH DONE FOR URINE CULTURE 850 ML UPON RETURN PT STATES SHE HOLDS HER URINE A LONG TIME DUE TO BACK PAIN AND HAD NO URGE TO URINATE. EXPLAINE TO PT THAT WHEN SHE HAQUE THE SLIGHTEST URGE TO URINATE PLZ CALL FOR ASSISTANCE INSTEAD OF WAITING WILL CONTINUE TO MONITOR
--- NOTE | 2016-10-19 18:21 | NUR ---
PT REQUEST TO WAIT ON LOPEZ CATHETER WANTS TO TRY TO URINATE ON HER OWN FIRST
--- NOTE | 2016-10-19 19:00 | NUR ---
RECEIVED REPORT AND ASSUMED PT CARE FROM DAY SHIFT NURSE @ THIS TIME.
[2016-10-19 23:06] VITALS: BP 117/55
[2016-10-20 01:38] VITALS: BP 101/53
--- NOTE | 2016-10-20 01:46 | NUR ---
PT RESTING SOUNDLY WITHOUT C/O OR DISTRESS NOTED. CALL LIGHT WITHIN REACH. WILL CONT TO MONITOR.
--- NOTE | 2016-10-20 05:15 | NUR ---
PT UNABLE TO VOID THIS SHIFT. DENIES ANY DISCOMFORT. ON PALPATION THERE IS SUPRAPUBIC TENDERNESS AND BLADDER DISTENTION. PT NOW AGREES TO BEING CATHED WITH LOPEZ. 16 FR LOPEZ PLACED WITH SOME RESISTANCE. ONCE LOPEZ IN BLADDER LARGE RETURN OF PYURIA RETURNED AND 750 ML OF AREN COLORED URINE. PT JAKE WELL. STATLOCK PLACED TO LEFT THIGH AND LOPEZ TO BSD. WILL CONT TO MONITOR.
[2016-10-20 05:27] LABS: HEMATOCRIT 31.3 % (36.0-48.0); HEMOGLOBIN 10.7 g/dL (12-16); MCH 30.2 pg (26.0-34.0); MCHC 34.2 g/dL (31.0-37.0); MCV 88.4 fL (80.0-100.0); MEAN PLATELET VOLUME 10.8 fL (7.4-10.4); PLATELET COUNT 208 10x3/uL (130-400); RBC 3.54 10x6/uL (4.00-5.40); RDW 13.1 % (11.5-14.5)
[2016-10-20 05:38] LABS: ANION GAP 13.9 mmol/L (8-16); CALCIUM 9.2 mg/dL (8.5-10.1); CARBON DIOXIDE 20.1 mmol/L (21.0-32.0); CREATININE - SERUM 1.1 mg/dL (0.6-1.3)
[2016-10-20 05:55] VITALS: BP 109/61
[2016-10-20 06:01] LABS: EOSINOPHILS 1 % (0-7); LYMPHOCYTES 9 % (15-50); MONOCYTES 1 % (2-11); NEUTROPHILS 83 % (40-80)
[2016-10-20 06:07] LABS: PLATELET ESTIMATE NORMAL
[2016-10-20 07:49] VITALS: BP 134/70
--- NOTE | 2016-10-20 09:40 | NUR ---
RESP UL ON 2L NC. IV PATENT. CALL LIGHT IN REACH. WILL CONT. PLAN OF CARE.
--- NOTE | 2016-10-20 11:18 | NUR ---
URINE SPECIMEN COLLECTED AND TAKEN TO LAB. WILL MONITOR.
[2016-10-20 11:23] LABS: APPEARANCE CLEAR (CLEAR); BACTERIA MODERATE /hpf (NONE SEEN); BILIRUBIN NEGATIVE (NEGATIVE); COLOR YELLOW (YELLOW); GLUCOSE 1000 mg/dL (NEGATIVE); KETONE SMALL mg/dL (NEGATIVE); LEUKOCYTE ESTERASE NEGATIVE (NEGATIVE); MUCUS <1+ /lpf (NONE SEEN); NITRITE NEGATIVE (NEGATIVE); PROTEIN NEGATIVE (NEGATIVE); RED CELLS - URINE 0-5 /hpf (0-5); SPECIFIC GRAVITY 1.015 (1.005-1.020); UROBILINOGEN NORMAL (NORMAL); WHITE CELLS - URINE 0-5 /hpf (0-5)
[2016-10-20 11:24] LABS: AMORPHOUS SEDIMENT <1+ /lpf (NONE SEEN); YEAST RARE /hpf (NONE SEEN)
[2016-10-20 11:47] VITALS: BP 112/67
[2016-10-20 15:54] VITALS: BP 139/67
--- NOTE | 2016-10-20 20:22 | NUR ---
BEDSIDE REPORT COMPLETED AND NO DISTRESS OBSERVED PT APPERS TO BE SLEEPING LAYING IN BED WITH EYES CLOSED RESPERATIONS EVEN AND UNLABORED ON 2LNC BED LOW AND LOCKED CALL LIGHT IN REACH SRX2 WILL MONITOR
[2016-10-20 20:28] VITALS: BP 103/60
--- NOTE | 2016-10-20 22:29 | NUR ---
PT ASSESSMENT COMPLETED NO DISTRESS OBSERVED CALL LIGHT INR EACH SRX2 BED LOW AND LOCKED NO DISTRESS OBSERVED WILL MONITOR
[2016-10-21 05:09] LABS: BASOPHILS 0.3 % (0.0-2.0); EOSINOPHILS 0.2 % (0-7); HEMATOCRIT 28.7 % (36.0-48.0); HEMOGLOBIN 9.6 g/dL (12-16); LYMPHOCYTES 4.1 % (15-50); MCH 29.2 pg (26.0-34.0); MCHC 33.4 g/dL (31.0-37.0); MCV 87.2 fL (80.0-100.0); MEAN PLATELET VOLUME 10.7 fL (7.4-10.4); MONOCYTES 2.1 % (2-11); NEUTROPHILS 83.3 % (40-80); PLATELET COUNT 234 10x3/uL (130-400); RBC 3.29 10x6/uL (4.00-5.40); RDW 13.2 % (11.5-14.5); WBC 29.3 10x3/uL (4.8-10.8)
[2016-10-21 05:17] VITALS: BP 106/70
[2016-10-21 05:43] LABS: ANION GAP 15.6 mmol/L (8-16); CALCIUM 8.7 mg/dL (8.5-10.1); CREATININE - SERUM 0.9 mg/dL (0.6-1.3); POTASSIUM - SERUM 4.6 mmol/L (3.5-5.1)
[2016-10-21 06:37] LABS: C-REACTIVE PROTEIN 38.8 mg/dL (0.0-0.9)
[2016-10-21 07:55] VITALS: BP 110/57
--- NOTE | 2016-10-21 09:35 | NUR ---
TELEMETRY SR. RESP UL ON 02 2L KIMMIE. JOHN EVANGELISTAACR. CALL LIGHT IN REACH. WILL CONT. PLAN OF CARE.
[2016-10-21 12:00] VITALS: BP 116/63
[2016-10-21 16:00] VITALS: BP 103/61
--- NOTE | 2016-10-21 19:23 | NUR ---
BEDSIDE SHIFT REPORT COMPLETED PT LAYING IN BED ON BACK EYES CLOSED AND PT APPERS TO BE SLEEPING CALL LIGHT IN [facility] SRX2 BED LOW AND LOCKED WILL MONITOR
[2016-10-21 20:00] VITALS: BP 128/71
--- NOTE | 2016-10-21 22:01 | NUR ---
PT LAYING IN BED NO DISTRESS OBSERVED EYES CLOSED AND PT APPERS TO BE SLEEPING CALL LIGHT IN REACH SRX2 BED LOW AND LOCKED WILL MONITOR
[2016-10-22] VITALS: BP 126/67
[2016-10-22 04:00] VITALS: BP 132/71
[2016-10-22 06:08] LABS: ALKALINE PHOSPHATASE 156 U/L (46-116); ALT (SGPT) 21 U/L (10-68); BILIRUBIN - TOTAL 0.24 mg/dL (0.2-1.3); CALC OSMOLALITY 273 mosm/kg (275-300); CHLORIDE - SERUM 103 mmol/L (98-107); CREATININE - SERUM 0.8 mg/dL (0.6-1.3); GLUCOSE 170 mg/dL (74-106); POTASSIUM - SERUM 4.4 mmol/L (3.5-5.1); PROTEIN - SERUM 5.6 g/dL (6.4-8.2); SODIUM 133 mmol/L (136-145); UREA NITROGEN 24 mg/dL (7-18); eGFR NON AFRICAN AMERICAN 78 mL/min (90-120)
[2016-10-22 06:11] LABS: BASOPHILS 0.4 % (0.0-2.0); EOSINOPHILS 0.4 % (0-7); HEMATOCRIT 31.3 % (36.0-48.0); HEMOGLOBIN 10.5 g/dL (12-16); IMMATURE GRANULOCYTES 11.9 % (0-5); LYMPHOCYTES 5.9 % (15-50); MCH 29.2 pg (26.0-34.0); MCHC 33.5 g/dL (31.0-37.0); MCV 86.9 fL (80.0-100.0); MEAN PLATELET VOLUME 10.4 fL (7.4-10.4); MONOCYTES 3.4 % (2-11); PLATELET COUNT 270 10x3/uL (130-400); WBC 30.9 10x3/uL (4.8-10.8)
[2016-10-22 07:28] LABS: C-REACTIVE PROTEIN 28.1 mg/dL (0.0-0.9)
--- NOTE | 2016-10-22 07:47 | NUR ---
RESTING QUIETLY NAD NOTED DENIES ANY NEEDS OR DISCOMFORT
[2016-10-22 08:07] VITALS: BP 135/66
--- NOTE | 2016-10-22 11:03 | NUR ---
Patient Name: CHRIS ETIENNE Encounter No: [id number] : 1960 Primary Insurance: [email or web address] HLTH EXCHANGE Anticipated DC Date: 10-22-2016 Planned Disposition: Long-Term Facility External Planned Provider: [facility], SKILLED REHAB BED DCP follow-up note: CM RECEIVED CALL FROM LESLIE OF [facility], PT'S FORENSIC SERGEANT, MONIE LIU, HAD EXPRESSED CONCERN TO LESLIE THAT PT NEEDED NEUROLOGY CLEARANCE FOR THERAPY BEFORE DISCHARGE. CM REVIEWED NEURO NOTE FROM 10-19 WITH LESLIE. LESLIE WILL CALL FORENSIC SERGEANT, MONIE LIU AND INFORM HER OF CLEARANCE FROM NEUROLOGY. LESLIE ADVISED THAT CASSIE WILL FOLLOW UP WITH CM TODAY. CM WAITING ADMISSION DETERMINATION AND INSURANCE NEGOTIATED RATE/ACCEPTANCE FROM [facility]. Black Top Spreader Machine Operator: Fransico Chappell
--- NOTE | 2016-10-22 11:54 | NUR ---
FSBS 176 HUMALOG 8 UNITS GIVEN SQ ABD
[2016-10-22 12:07] VITALS: BP 143/70
--- NOTE | 2016-10-22 13:06 | NUR ---
Patient Name: CHRIS ETIENNE Encounter No: [id number] : 1960 Primary Insurance: [employer] HLTH EXCHANGE Anticipated DC Date: 10-22-2016 Planned Disposition: [facility] Facility External Planned Provider: [facility], COMMERCIAL SKILLED REHAB DCP follow-up note: CM RECEIVED CALL FROM PT'S INSURANCE LINOLEUM FLOOR INSTALLER WHO REPORTS THAT [facility] WILL ACCEPT PT, INSURANCE HAS NEGOTIATED A RATE, HOWEVER, PT WILL HAVE A $250 PER DAY COPAY FOR REHAB SERVICES IN [facility]. CM SPOKE TO PT REGARDING THIS INFORMATION WELL IN FORMED OF [place] DECLINING PATIENT FOR REHAB. PT IS UNSURE WHAT SHE WILL DO AND WILL SPEAK TO HER SISTER REGARDING OPTIONS. CM PROVIDED PT WITH HER GRAPHIC ILLUSTRATOR INFORMATION WELL CM CONTACT INFORMATION. PT'S FRIEND REPORTS THE DOCTOR TOLD THEM THAT THE PNEUMONIA HAS TO BE CLEARED, PT HAS TO HAVE HEART CATHS AND WILL HAVE TO BE ABLE TO WALK SOME PRIOR TO LEAVING THE HOSPITAL. CM ENCOURAGED PT TO HAVE SAFE DISCHARGE PLAN PRIOR TO DISCHARGE DAY. CM NOTIFIED PT'S INSURANCE LINOLEUM FLOOR INSTALLER WHO AWAITS PT'S CALL AND DOES NOT RECEIVE CALL, WILL SEE PT AT THE HOSPITAL TOMORROW, 10-23-16. PT HAS $250 PER DAY COPAY FOR [facility] (S[facility]); PT IS CONSIDERING HER OPTIONS, DISCUSSING WITH FAMILY AND WILL INFORM CM OF HER DISCHARGE PLAN. Fransico Chappell, CASE MANAGEMENT
[2016-10-22 16:00] VITALS: BP 102/54
[2016-10-22 19:00] VITALS: BP 185/94
[2016-10-23] VITALS: BP 189/71
--- NOTE | 2016-10-23 01:21 | NUR ---
SLEEPING, RESPIRATIONS UNLABORED, NO S&S OF ACUTE DISTRESS NOTED. TLELMETRY SHOWING 92 BPM IN NSR. 2L NC FOR O2 THERAPY NOTED. BED LOW AND LOCKED, CALL LIGHT IN REACH, WILL CONTINUE TO MONITOR.
--- NOTE | 2016-10-23 03:06 | NUR ---
RESTING WITH EYES CLOSED, RESPERATIOSN EVEN, NO S/S DISTRESS NOTED.
[2016-10-23 04:00] VITALS: BP 169/71
[2016-10-23 05:11] LABS: BASOPHILS 0.3 % (0.0-2.0); EOSINOPHILS 0.2 % (0-7); HEMATOCRIT 31.9 % (36.0-48.0); HEMOGLOBIN 10.8 g/dL (12-16); IMMATURE GRANULOCYTES 10.8 % (0-5); MCH 29.2 pg (26.0-34.0); MCHC 33.9 g/dL (31.0-37.0); MCV 86.2 fL (80.0-100.0); MEAN PLATELET VOLUME 10.1 fL (7.4-10.4); MONOCYTES 8.2 % (2-11); NEUTROPHILS 74.5 % (40-80); PLATELET COUNT 306 10x3/uL (130-400); RDW 12.8 % (11.5-14.5); WBC 25.3 10x3/uL (4.8-10.8)
[2016-10-23 05:19] LABS: CALC OSMOLALITY 272 mosm/kg (275-300); CALCIUM 8.3 mg/dL (8.5-10.1); CARBON DIOXIDE 21.4 mmol/L (21.0-32.0); CHLORIDE - SERUM 102 mmol/L (98-107); CREATININE - SERUM 0.7 mg/dL (0.6-1.3); GLUCOSE 188 mg/dL (74-106); POTASSIUM - SERUM 4.7 mmol/L (3.5-5.1); SODIUM 133 mmol/L (136-145); eGFR NON AFRICAN AMERICAN > 90 mL/min (90-120)
[2016-10-23 05:21] LABS: UREA NITROGEN 17 mg/dL (7-18)
--- NOTE | 2016-10-23 07:26 | NUR ---
0710-NPO FOR FOR HEART CATH THIS AM. PERMITS ARE SIGNED. LOPEZ CATH PATENT WITH YELLOW URINE. LEFT FOREARM SEEN WITH NS INFUSING AT 500CC/HR. ON 2L PER NC. ON HEART MONITOR SHOWING SR, HR 95. WILL CONTINUE TO MONITOR.
[2016-10-23 08:56] VITALS: BP 172/70
[2016-10-23 12:21] VITALS: BP 148/76
--- NOTE | 2016-10-23 12:23 | NUR ---
PATIENT IS STILL NPO, AWIATING CATH FOR TODAY. FAMILY AT BEDSIDE.
--- NOTE | 2016-10-23 12:48 | NUR ---
Nutrition follow-up: Pt NPO for heart cath today PO intake of consistent CHO diet has been ~66% average of last 9 meals Labs reviewed No BM charted Wt: 170# RDN following.
--- NOTE | 2016-10-23 13:46 | NUR ---
TO FURNACE RELINER VIA BED.
--- NOTE | 2016-10-23 16:22 | NUR ---
1515-RETURNS FROM ELEMENTARY READING SPECIALIST RECOVERY WITH DRY, INTACT DRESSING TO LEFT GROIN. PPP AND STRONG. NEW IV SEEN TO LEFT HAND. TO LAY FLAT X 4 HOURS. LOPEZ CATH PATENT WITH CLEAR YELLOW URINE. FAMILY AT BEDSIDE. WILL MONITOR. 1625-STILL LAYING FLAT. DENIES NEEDS. FSBS IS 275. WILL LET PATIENT START EATING BEFORE COVERING FOR GLUCOSE LEVEL. CONTINUE TO MONITOR.
--- NOTE | 2016-10-23 19:55 | NUR ---
ASSESSMENT COMPLETE, A&O. RESPERATIONS EVEN ON O2 AT 2 LITER. IV TO LEFT HAND WITH NS INFUSING AT 50. SITE CLEAN AND DRY. DRSG TO LEFT GROIN C/D/I. INSERTIN SITE SOFT, NO SWELLING, BLEEDING OR HEMATOMA NOTED. PEDAL PULSES PALPABLE. PTS SISTER AT BED SIDE. REPOSITIONED IN BED FOR COMFORT. WILL CONT TO MONITOR.
[2016-10-23 21:18] VITALS: BP 177/90
--- NOTE | 2016-10-23 21:27 | NUR ---
HS MEDS GIVEN, BS 287, COVERED PER S/S. NORCO 1 TAB GIVEN FOR C/O PAIN. REPOSITIONED IN BED FOR COMFORT.
[2016-10-24 01:12] VITALS: BP 162/84
--- NOTE | 2016-10-24 01:50 | NUR ---
RESTING QUIETLY EYES CLOSED RESP UNLABORED
--- NOTE | 2016-10-24 02:40 | NUR ---
RESING WITH EYES CLOSED, RESPERATIONS EVEN, NO S/S DISTRESS NOTED.
[2016-10-24 05:21] VITALS: BP 191/92
[2016-10-24 06:57] LABS: BASOPHILS 0.2 % (0.0-2.0); EOSINOPHILS 0.1 % (0-7); HEMATOCRIT 34.8 % (36.0-48.0); HEMOGLOBIN 11.9 g/dL (12-16); IMMATURE GRANULOCYTES 8.2 % (0-5); LYMPHOCYTES 5.3 % (15-50); MCH 29.7 pg (26.0-34.0); MCHC 34.2 g/dL (31.0-37.0); MCV 86.8 fL (80.0-100.0); MEAN PLATELET VOLUME 9.7 fL (7.4-10.4); NEUTROPHILS 81.2 % (40-80); RBC 4.01 10x6/uL (4.00-5.40); RDW 12.8 % (11.5-14.5); WBC 19.3 10x3/uL (4.8-10.8)
[2016-10-24 07:09] LABS: CALC OSMOLALITY 275 mosm/kg (275-300); CARBON DIOXIDE 23.4 mmol/L (21.0-32.0); CHLORIDE - SERUM 103 mmol/L (98-107); CREATININE - SERUM 0.6 mg/dL (0.6-1.3); GLUCOSE 184 mg/dL (74-106); MAGNESIUM - SERUM 1.5 mg/dL (1.8-2.4); POTASSIUM - SERUM 4.4 mmol/L (3.5-5.1); SODIUM 134 mmol/L (136-145); UREA NITROGEN 22 mg/dL (7-18); eGFR NON AFRICAN AMERICAN > 90 mL/min (90-120)
[2016-10-24 07:14] LABS: PLATELET COUNT 405 10x3/uL (130-400)
[2016-10-24 08:21] VITALS: BP 157/89
--- NOTE | 2016-10-24 09:13 | CN ---
PATIENT NAME:CHRIS RAO MEDICAL RECORD: [id number] : 60 LOCATION:D. D.2119 ADMIT DATE: 10/18/16 ACCOUNT: [id number] CONSULTING PHYSICIAN: NATALYA CHRISTIE MD REFERRING PHYSICIAN: ANDRA SHERMAN M.D. DATE OF CONSULTATION: 10/23/2016 CONSULT REQUESTING PHYSICIAN: Chrystal Michel MD REASON FOR CONSULTATION: Pneumonia and leukocytosis. HISTORY OF PRESENT ILLNESS: Ms. Rao is a 56-year-old female who was admitted on 10/18/2016 with chest pain and back pain. She has some bulged disc. Also, she has a cardiac catheterization today. The patient's chest radiograph was getting worse as well as leukocytosis. She denies any right-sided chest pain. Also, she was admitted with poor glycemic control her. Her blood sugar was 400 on admission. She has a blood culture that is negative so far. REVIEW OF SYSTEMS: Mainly in the history of present illness. PAST MEDICAL HISTORY: 1. Chronic backache. 2. Anxiety and depression. 3. Hypertension. 4. Diabetes mellitus. 5. Hyperlipidemia. PAST SURGICAL HISTORY: She had a cardiac catheterization and stent placement. ALLERGIES: There are no known drug allergies. PRESENT MEDICATIONS: On Criers Podium was reviewed. PERSONAL AND SOCIAL HISTORY: The patient is still an everyday smoker. She is a nondrinker. FAMILY HISTORY: Not known. PHYSICAL EXAMINATION: GENERAL: The patient is now lying comfortably in bed. She is not in acute distress. VITAL SIGNS: The blood pressure is 148/76, pulse is 96, respirations 15, temperature 98.4 and SpO2 98% on 3 liters nasal cannula. HEENT: Conjunctivae pink, sclerae nonicteric. NECK: Supple, no JVD. CHEST: There is a crackle on the right side. No wheezing. HEART: Rate and rhythm regular, normal sound, no murmur. ABDOMEN: Soft, bowel sounds present. No hepatosplenomegaly. RECTAL: Deferred. EXTREMITIES: No cyanosis, no clubbing, no pedal edema. SKIN: Warm, normal turgor. CENTRAL NERVOUS SYSTEM: The patient is awake and alert. There are no obvious cranial nerve abnormality. The gait was not tested. CONSULT REPORT [id number] CHRIS RAO IMAGING: Chest radiograph, there is a worsening infiltrate in the right lower lobe, possible right-sided pleural effusion. LABORATORY DATA: CBC: The WBC is 25.3, hemoglobin 10.8, hematocrit 31.9 and the platelet count 306. Chemistry: Sodium 133, potassium 4.7, BUN is 17, creatinine 0.7 and glucose 188. IMPRESSION: 1. Pneumonia, right lower lobe, consistent with most likely hospital-acquired pneumonia. 2. Leukocytosis secondary to pneumonia. 3. Coronary artery disease. 4. Diabetes mellitus type 2. 5. Tobacco dependence syndrome. 6. Possible underlying chronic obstructive pulmonary disease with a history of smoking. 7. Chronic backache. RECOMMENDATION: 1. Continue vancomycin and adjust the dose with serum Levaquin IV. I will add cefepime. 2. Albuterol ipratropium nebulizer p.r.n., follow up labs and chest radiograph in the morning. Dr. Michel, once again thanks for involving me in the care of Ms. Rao. TRANSINT:[id number] Voice Confirmation ID: [id number] DOCUMENT ID: [id number] NATALYA CHRISTIE MD at 0913 CC: CHRYSTAL MICHEL MD [id number] DICTATION DATE: 10/23/16 1636 GED INSTRUCTOR: 10/23/16 2111 ADM IN [facility] [address] [place] [address]
--- NOTE | 2016-10-24 09:19 | NUR ---
OOB WITH PT ASSIST. TO X-RAY BY W/C. TELEMETRY SR. WILL CONT. PLAN OF CARE.
[2016-10-24 12:05] VITALS: BP 176/93
--- NOTE | 2016-10-24 14:16 | OP ---
PATIENT NAME: CHRIS ETIENNE MEDICAL RECORD: [id number] :60 LOCATION:D.M2 D.2119 ADMISSION DATE:10/18/16 SURGEON: REBECCA MARIN MD DATE OF OPERATION: 10/18/2016 PROCEDURE: Left heart catheterization, selective coronary angiography, right femoral artery approach. CATHETERS: A 5-East Timorese sheath, 5/4 left and right Giacomo, 5/4 pig. The procedure was well tolerated. The patient was returned to mayen, sheath was removed. ExoSeal device was placed. FINDINGS: Left ventriculography in 30-degree TRINIDAD view: Normal wall motion, normal systolic function. CORONARY ANATOMY: Left main: Left main is free of disease. LAD: Has 2 sequential 80% stenosis, 1 proximal and 1 mid. CIRCUMFLEX: Circumflex is totally occluded in its mid portion. RIGHT CORONARY ARTERY: A large, dominant ____, no significant disease. PLAN: Intervention to the circumflex momentarily. PROCEDURE IN DETAIL: A 5-East Timorese sheath was changed for a 6-East Timorese sheath. A JL4 guiding catheter provided good guide support followed by a 300 cm Raiford XT wire. It was placed across the totally occluded circumflex down this portion of vessel. Next, a predeployment balloon was a 3.0 x 15 mm Dane balloon was inflated up to 6 atmospheres. This showed holiness of YOUSUF flow with marked residual. Therefore, 3.0 x 18 mm Integrity nondrug-eluting stent was placed across the area of occlusion and inflated up to 14 atmospheres. Final angiography showed excellent resolution of a 100% stenosis to no significant residual. YOUSUF flow improved from 0 to 3 at the end of procedure. Integrilin and heparin were used during the case. Sheath closed with ExoSeal device. PLAN: Intervention of the LAD in the near future. TRANSINT:[id number] Voice Confirmation ID: [id number] DOCUMENT ID: [id number] REBECCA MARIN MD at 1416 CC: [id number] DICTATION DATE: 10/18/16 1504 RETAIL MERCHANDISING SPECIALIST: 10/18/16 1529 [place] [address]
--- NOTE | 2016-10-24 14:16 | OP ---
PATIENT NAME: CHRIS ETIENNE MEDICAL RECORD: [id number] :60 LOCATION:D.M2 D.2119 ADMISSION DATE:10/18/16 SURGEON: REBECCA MARIN MD DATE OF OPERATION: 10/23/2016 Percutaneous Transluminal Coronary Angioplasty Stent Report For the cath report, please see report dictated previously. After a 6-Slovenian sheath was placed in the left femoral artery, a JL4 guiding catheter provided excellent guide catheter support followed by 300 cm [place] XT wire was placed across both the 90% stenosis in the LAD. This followed predeployment balloon, it was a 3.0 Redwood balloon, which was inflated up to 8 and 10 atmospheres. Next, stents were placed in the following fashion. A 3.0 x 15 mm Integrity nondrug eluting stent was placed distally and inflated at 12 atmospheres. More proximally, a 3.5 Integrity nondrug-eluting stent inflated up to 14 atmospheres. Final injection shows excellent resolution of 2 sequential 90% stenosis, no significant residual. YOUSUF flow was 3 throughout the procedure. The patient was previously on Plavix, heparin was used during the case. Sheath was closed with ExoSeal device. TRANSINT:[id number] Voice Confirmation ID: [id number] DOCUMENT ID: [id number] REBECCA MARIN MD at 1416 CC: [id number] DICTATION DATE: 10/23/16 1449 SILVERING DEPARTMENT SUPERVISOR: 10/23/16 1517 ADM IN [facility] [address] [id number]
[2016-10-24 16:00] VITALS: BP 156/72
--- NOTE | 2016-10-24 19:32 | NUR ---
RESUMED CARE OF PT, LYING IN BED RESPIRATIONS EVEN AND UNLABORED ON 2LPM VIA NC. LEFT HAND INFUSING NS @ 50. 91 SR ON TELEMETRY. LOPEZ TO GRAVITY. NO NEEDS NOTED AT THIS TIME. CALL LIGHT IN REACH. SEE NURSE ASSESSMENT. CALL LIGHT IN REACH. WILL CONTINUE TO MONITOR.
[2016-10-24 19:56] VITALS: BP 129/70
[2016-10-25] VITALS: BP 142/77
--- NOTE | 2016-10-25 01:30 | NUR ---
LYING IN BED, CALL LIGHT IN REACH. WILL CONTINUE WITH PLAN OF CARE.
[2016-10-25 04:00] VITALS: BP 154/81
[2016-10-25 05:11] LABS: BASOPHILS 0.2 % (0.0-2.0); EOSINOPHILS 1.1 % (0-7); HEMATOCRIT 32.3 % (36.0-48.0); HEMOGLOBIN 10.8 g/dL (12-16); IMMATURE GRANULOCYTES 6.9 % (0-5); LYMPHOCYTES 10.7 % (15-50); MCH 29.1 pg (26.0-34.0); MCHC 33.4 g/dL (31.0-37.0); MCV 87.1 fL (80.0-100.0); MEAN PLATELET VOLUME 9.2 fL (7.4-10.4); MONOCYTES 6.4 % (2-11); NEUTROPHILS 74.7 % (40-80); PLATELET COUNT 416 10x3/uL (130-400); RBC 3.71 10x6/uL (4.00-5.40); RDW 12.9 % (11.5-14.5)
[2016-10-25 05:17] LABS: WBC 13.1 10x3/uL (4.8-10.8)
[2016-10-25 05:20] LABS: CALC OSMOLALITY 272 mosm/kg (275-300); CALCIUM 8.5 mg/dL (8.5-10.1); CARBON DIOXIDE 24.6 mmol/L (21.0-32.0); CHLORIDE - SERUM 102 mmol/L (98-107); CREATININE - SERUM 0.7 mg/dL (0.6-1.3); GLUCOSE 208 mg/dL (74-106); MAGNESIUM - SERUM 1.5 mg/dL (1.8-2.4); POTASSIUM - SERUM 4.2 mmol/L (3.5-5.1); SODIUM 132 mmol/L (136-145); UREA NITROGEN 19 mg/dL (7-18); eGFR NON AFRICAN AMERICAN > 90 mL/min (90-120)
--- NOTE | 2016-10-25 05:20 | NUR ---
NORCO 10 X 2 TABS GIVEN FOR GENERALIZED PAIN. NO CHANGES FROM PREVIOUS ASSESSMENT. WILL CONTINUE TO MONITOR. CALL LIGHT IN REACH.
[2016-10-25 08:34] VITALS: BP 160/82
--- NOTE | 2016-10-25 09:48 | NUR ---
TELEMETRY SR. IV PATENT. JOHN INTACT. CALL LIGHT IN REACH. WILL MONITOR.
--- NOTE | 2016-10-25 10:09 | NUR ---
UP TO CHAIR WITH PT ASSIST.
[2016-10-25 11:00] VITALS: BP 114/67
--- NOTE | 2016-10-25 12:31 | NUR ---
Nutrition follow-up: Diet: ADA consistent CHO PO intake ~70% of meals Labs reviewed FSBS running high Visited with pt and mother about menu selections. Pt states Dr. Joshua threw away several food items off her breakfast tray a couple days ago and told her not to eat them. RDN reviewed menu selections with pt and advised her to limit CHO to ~45-60 gm/meal. Pt is in pain due to back issues and is under a lot of stress at this time. RDN will provide pt with printed DMT2 diet information. RDN proided pt with name and phone number. RDN will be available if needed. Following.
[2016-10-25 16:39] VITALS: BP 133/70
--- NOTE | 2016-10-25 19:55 | NUR ---
RESUMED CARE OF PT, LYING IN BED RESPIRATIONS EVEN AND UNLABORED ON 2LPM VIA NC. LEFT HAND INFUSING NS @ 100. LOPEZ TO GRAVITY. 85 SR ON TELEMETRY. CALL LIGHT IN REACH. WILL CONTINUE TO MONITOR.
[2016-10-25 20:00] VITALS: BP 143/79
[2016-10-26] VITALS: BP 149/77
--- NOTE | 2016-10-26 02:41 | NUR ---
BED BATH AND LINENS CHANGED, CALL LIGHT IN REACH. WILL CONTINUE TO MONITOR.
--- NOTE | 2016-10-26 03:19 | NUR ---
BENCH ASSEMBLER ELECTRICAL AT BEDSIDE TO OBTAIN VITALS, CALL LIGHT IN REACH. WILL CONTINUE WITH PLAN OF CARE.
--- NOTE | 2016-10-26 05:58 | NUR ---
GONE FOR XRAY
[2016-10-26 06:09] LABS: BASOPHILS 0.2 % (0.0-2.0); CALC OSMOLALITY 269 mosm/kg (275-300); CALCIUM 8.4 mg/dL (8.5-10.1); CARBON DIOXIDE 24.3 mmol/L (21.0-32.0); CHLORIDE - SERUM 103 mmol/L (98-107); CREATININE - SERUM 0.7 mg/dL (0.6-1.3); EOSINOPHILS 0.4 % (0-7); HEMATOCRIT 30.8 % (36.0-48.0); HEMOGLOBIN 10.2 g/dL (12-16); IMMATURE GRANULOCYTES 4.1 % (0-5); LYMPHOCYTES 10.3 % (15-50); MAGNESIUM - SERUM 1.4 mg/dL (1.8-2.4); MCHC 33.1 g/dL (31.0-37.0); MCV 87.5 fL (80.0-100.0); MEAN PLATELET VOLUME 9.1 fL (7.4-10.4); MONOCYTES 6.8 % (2-11); NEUTROPHILS 78.2 % (40-80); RBC 3.52 10x6/uL (4.00-5.40); RDW 13.1 % (11.5-14.5); SODIUM 135 mmol/L (136-145); UREA NITROGEN 15 mg/dL (7-18); WBC 13.2 10x3/uL (4.8-10.8); eGFR NON AFRICAN AMERICAN > 90 mL/min (90-120)
[2016-10-26 06:15] LABS: GLUCOSE 80 mg/dL (74-106)
[2016-10-26 06:20] LABS: PLATELET COUNT 515 10x3/uL (130-400)
--- NOTE | 2016-10-26 10:29 | NUR ---
PTS L.HAND PIV INFILTRATED. UNABLE TO START NEW IV ACCESS AFTER 2 ATTEMPTS. CALLED FOR ANESTHESIA TO HELP. ANESTHESIA CAME AND GAINED ACCESS IN L.AC WITH 20 GUAGE X1 ATTEMPT. RESTARTED PTS IVPB ANBX. DRSG CDI AND SWAB CAPS IN USE. PT SITTING UP IN BEDSIDE W/C. NO FURTHER NEEDS AT THIS TIME. WILL CPOC.
--- NOTE | 2016-10-26 10:50 | NUR ---
ANBX FINISHED. STARTED LEVAQUIN INFUSING OVER 90 MINS VIA L.AC PIV. HELD VANC ANBX R/T TROUGH LEVEL BEING ELEVATED @26. CALLED PHARMACY AND THEY WILL ADJUST DOSE. PT RESTING IN BED LYING QUIETLY. NO FURTHER NEEDS AT THIS TIME. WILL CPOC.
[2016-10-26 12:04] VITALS: BP 142/71
--- NOTE | 2016-10-26 13:06 | NUR ---
PT REQUESTED AND WAS PROVIDED WITH PRN NORCO FOR ALL OVER PAINS. PT VOICED THANKS AND IS RESTING QUIETLY DENIES ANY FURTHER NEEDS AT THIS TIME. WILL CPOC.
--- NOTE | 2016-10-26 15:00 | NUR ---
BLADDER TRAINING INITIATED PER ORDER TO D/C LOPEZ. TEACHING DONE ON ENTIRE PROCESS AND PT VERBALIZED UNDERSTANDING TO CALL WHEN FEELING URGE TO VOID. LOPEZ CLAMPED OFF AT THIS TIME. WILL CPOC.
[2016-10-26 16:00] VITALS: BP 123/63
--- NOTE | 2016-10-26 16:30 | NUR ---
FSBS 209. PT REC'D 12 UNITS PER SS INSULIN. PT IS SITTING UP IN BED RESTING QUIETLY STATES SHE FEELS "ALRIGHT" WAITING ON DINNER TRAY. SISTER AT BEDSIDE. NO FURTHER NEEDS NOTED AT THIS TIME. WILL CPOC.
--- NOTE | 2016-10-26 17:23 | NUR ---
Patient Name: CHRIS ETIENNE Encounter No: [id number] : 1960 Primary Insurance: [employer] HLTH EXCHANGE Anticipated DC Date: 10-22-2016 Planned Disposition: HOME WITH HOME HEALTH External Planned Provider: PT TO MAKE CHOICE DCP follow-up note: CM SPOKE TO PT REGARDING DISCHARGE PLANNING AND NEEDS. PT REPORTS SHE CANNOT AFFORD TO GO TO [facility] FOR REHAB AND HER SISTER IS MAKING ARRANGEMENTS FOR PT TO COME BACK HOME. CM DISCUSSED OUTPATIENT REHAB AND HOME HEALTH SERVICES. PT REPORTS SHE WANTS HOME HEALTH FOR THERAPY AT HOME BUT DOES NOT WANT TO MAKE ANY DECISIONS UNTIL SPEAKING TO HER SISTER. CM LEFT HOME HEALTH CHOICE LETTER WITH CM CONTACT INFORMATION. CM TO ARRANGE HOME HEALTH FOR PHYSICAL THERAPY WITH PHYSICIAN AGREEMENT AND ORDERS WELL PT CHOICE OF PROVIDER. Fransico Chappell, CASE MANAGEMENT
--- NOTE | 2016-10-26 18:29 | NUR ---
PT CALLED REQUESTING PRN PAIN MED FOR BILAT SHOULDER PAINS AND WAS PROVIDED WITH IT. PT RESTING QUIETLY WITH SISTER AT BEDSIDE. PT UNABLE TO FEEL URGE TO VOID. UNCLAMPED LOPEZ AND ALLOWED URINE FLOW. WILL RECLAMP AND CONTINUE WITH BLADDER TRAINING.
[2016-10-26 20:25] VITALS: BP 104/77
[2016-10-27 00:41] VITALS: BP 105/76
[2016-10-27 05:48] VITALS: BP 106/76
[2016-10-27 06:32] LABS: BASOPHILS 0.2 % (0.0-2.0); EOSINOPHILS 0.7 % (0-7); HEMATOCRIT 30.8 % (36.0-48.0); HEMOGLOBIN 10.1 g/dL (12-16); IMMATURE GRANULOCYTES 3.3 % (0-5); LYMPHOCYTES 9.9 % (15-50); MCH 29.1 pg (26.0-34.0); MCHC 32.8 g/dL (31.0-37.0); MCV 88.8 fL (80.0-100.0); MONOCYTES 7.9 % (2-11); RBC 3.47 10x6/uL (4.00-5.40); RDW 13.3 % (11.5-14.5); WBC 13.5 10x3/uL (4.8-10.8)
[2016-10-27 06:34] LABS: PLATELET COUNT 619 10x3/uL (130-400)
[2016-10-27 06:59] LABS: CALC OSMOLALITY 272 mosm/kg (275-300); CALCIUM 8.7 mg/dL (8.5-10.1); CARBON DIOXIDE 26.6 mmol/L (21.0-32.0); CHLORIDE - SERUM 102 mmol/L (98-107); CREATININE - SERUM 0.7 mg/dL (0.6-1.3); GLUCOSE 139 mg/dL (74-106); MAGNESIUM - SERUM 1.4 mg/dL (1.8-2.4); POTASSIUM - SERUM 4.4 mmol/L (3.5-5.1); SODIUM 135 mmol/L (136-145); UREA NITROGEN 15 mg/dL (7-18); eGFR NON AFRICAN AMERICAN > 90 mL/min (90-120)
[2016-10-27 08:55] VITALS: BP 155/82
[2016-10-27] MEDS ORDERED: PLAVIX75 MG PO (13:02)
[2016-10-27 13:42] VITALS: BP 160/91
--- NOTE | 2016-10-27 15:45 | NUR ---
IV AND TELEMETRY DCD. DC PLANS GIVEN. UNDERSTANDING VOICED. ESCORTED TO CAR BY W/C.
--- NOTE | 2016-12-28 14:54 | DS ---
PATIENT:CHRIS ETIENNE :60 MEDICAL RECORD: [id number] DISCHARGE SUMMARY ADMISSION DATE: 10/18/16 DISCHARGE DATE: 10/27/16 DATE OF ADMISSION: 10/17/2016 DATE OF DISCHARGE: 10/27/2016 ADMISSION DIAGNOSIS: Non-Q-wave myocardial infarction. SECONDARY DIAGNOSES: 1. Coronary artery disease. 2. Hypertension. 3. Diabetes mellitus. 4. Hyperlipidemia. 5. Renal insufficiency. 6. Pneumonia. HOSPITAL COURSE: Ms. Etienne is a 56-year-old woman who presented to the Emergency Room complaining of several hour history of chest pain. Her cardiac enzymes were positive. She underwent cardiac catheterization. Her culprit vessel was the circumflex. It was successfully stented. However, she had multivessel disease. She returned 2 days later for completion of a staged procedure. The LAD was successfully stented. In the interim, she developed renal insufficiency. This was thought to be secondary to contrast and possibly hypotension. It resolved with IV fluids. A few days after admission, she developed a cough. Chest x-ray was consistent with right lower lobe pneumonia, which was thought to be hospital-acquired. She was subsequently placed on IV antibiotics. The pulmonary service was consulted and followed on her case as well. Over the next several days, she improved with IV antibiotics. Her renal function improved as well. At this point, because of some issues, it was felt she would do best going to a rehab facility for strengthening and conditioning. She was then discharged to rehabilitation on 10/27/2016. FOLLOWUP: We will plan on seeing her back in clinic in approximately 3-4 weeks. TRANSINT:[id number] Voice Confirmation ID: [id number] DOCUMENT ID: [id number] ANDRA SHERMAN M.D. at 1454 CC: [id number] DICTATION DATE: 12/27/16 1033 PLANNING ANALYST: 12/28/16 0103 DIS IN 10/27/16 [place] [address]
== END 2016-10-27 15:47 | disposition home health service (06) | DRG 249 ==
LOC: D.ER 11:59 → D.M2 21:39 → OBSVTIME 10-18 17:00 → D.M2 10-18 17:06
PROVIDERS: Emergency Medicine; Family Medicine; Internal Medicine Interventional Cardiology; Internal Medicine Pulmonary Disease; ADMIT Internal Medicine Cardiovascular Disease
PROC: B2111ZZ Fluoroscopy of Multiple Coronary Arteries using Low Osmolar Contrast (ICD-10-PCS; 2016-10-18)
PROC: B2151ZZ Fluoroscopy of Left Heart using Low Osmolar Contrast (ICD-10-PCS; 2016-10-18)
PROC: 02703DZ Dilation of Coronary Artery, One Artery with Intraluminal Device, Percutaneous Approach (ICD-10-PCS; principal; 2016-10-18 07:00)
PROC: 4A023N7 Measurement of Cardiac Sampling and Pressure, Left Heart, Percutaneous Approach (ICD-10-PCS; 2016-10-18 07:00)
DX: I21.4 Non-ST elevation (NSTEMI) myocardial infarction (principal); N17.9 Acute kidney failure, unspecified; I25.10 Atherosclerotic heart disease of native coronary artery without angina pectoris; R00.0 Tachycardia, unspecified; E11.65 Type 2 diabetes mellitus with hyperglycemia; Z79.4 Long term (current) use of insulin; E78.5 Hyperlipidemia, unspecified; F17.210 Nicotine dependence, cigarettes, uncomplicated; I10 Essential (primary) hypertension; E86.0 Dehydration; M43.16 Spondylolisthesis, lumbar region; M54.16 Radiculopathy, lumbar region; G89.29 Other chronic pain

== ENCOUNTER → 2016-12-28 08:36 | Outpatient (CLI) | payer BC ==
[2016-10-18 14:40] VITALS: BMI 27.6
== END ==
LOC: D.MRI 08:30
DX: M54.12 Radiculopathy, cervical region (principal)

== ENCOUNTER 2017-05-01 05:30 | Inpatient (IN) | payer BC ==
[2017-04-30 15:25] LABS: BASOPHILS 0.3 % (0-2); EOSINOPHILS 3.5 % (0-7); HEMATOCRIT 38.5 % (36.0-48.0); HEMOGLOBIN 13.1 g/dL (12-16); IMMATURE GRANULOCYTES 0.2 % (0-5); LYMPHOCYTES 30.4 % (15-50); MCH 29.1 pg (26.0-34.0); MCV 85.6 fL (80.0-100.0); MEAN PLATELET VOLUME 9.8 fL (7.4-10.4); MONOCYTES 8.5 % (2-11); NEUTROPHILS 57.1 % (40-80); RDW 13.8 % (11.5-14.5); WBC 6.6 10x3/uL (4.8-10.8)
[2017-04-30 15:28] LABS: PLATELET COUNT 272 10x3/uL (130-400)
[2017-04-30 15:36] LABS: APPEARANCE HAZY (CLEAR); BILIRUBIN NEGATIVE (NEGATIVE); COLOR YELLOW (YELLOW); GLUCOSE 500 mg/dL (NEGATIVE); KETONE NEGATIVE (NEGATIVE); LEUKOCYTE ESTERASE 1+ (NEGATIVE); NITRITE POSITIVE (NEGATIVE); PROTEIN TRACE mg/dL (NEGATIVE); SPECIFIC GRAVITY 1.025 (1.005-1.020); UROBILINOGEN NORMAL (NORMAL)
[2017-04-30 15:37] LABS: INR 1.02 (0.85-1.17); PROTIME 13.3 SECONDS (11.6-15.0)
[2017-04-30 15:38] LABS: BACTERIA MANY /hpf (NONE SEEN); RED CELLS - URINE 0-5 /hpf (0-5)
[2017-04-30 16:01] LABS: ANION GAP 16.8 mmol/L (8-16); CALCIUM 9.4 mg/dL (8.5-10.1); CARBON DIOXIDE 26.3 mmol/L (21.0-32.0); POTASSIUM - SERUM 5.1 mmol/L (3.5-5.1)
[~2017-05-01] VITALS: Ht 167.6 cm; Wt 88.0 kg
[2017-05-01] VITALS (11 sets, daily range): BP systolic 109–160; BP diastolic 58–82; Ht 167.6 cm; Wt 88.0 kg
[~2017-05-01 05:30] MED LIST changes: +BYSTOLIC5 MG PO; +HUMALOG 30100 UNITS/ SC; +OMEPRAZOLE40 MG PO; +TRESIBA FL100 UNIT/1 SC
--- NOTE | 2017-05-01 09:07 | NUR ---
UNABLE TO REACH FAMILY FOR UPDATE
[2017-05-01 11:42] LABS: BASOPHILS 0.2 % (0-2); EOSINOPHILS 1.3 % (0-7); HEMATOCRIT 33.5 % (36.0-48.0); HEMOGLOBIN 11.5 g/dL (12-16); IMMATURE GRANULOCYTES 0.4 % (0-5); LYMPHOCYTES 18.9 % (15-50); MCH 29.6 pg (26.0-34.0); MCHC 34.3 g/dL (31.0-37.0); MCV 86.1 fL (80.0-100.0); MEAN PLATELET VOLUME 9.8 fL (7.4-10.4); MONOCYTES 3.1 % (2-11); NEUTROPHILS 76.1 % (40-80); PLATELET COUNT 260 10x3/uL (130-400); RBC 3.89 10x6/uL (4.00-5.40); RDW 14.1 % (11.5-14.5); WBC 5.5 10x3/uL (4.8-10.8)
--- NOTE | 2017-05-01 13:13 | HP ---
PATIENT: CHRIS ETIENNE MEDICAL RECORD: [id number] ACCOUNT: [id number] LOCATION:[place] : 60 ADMISSION DATE: 05/01/17 HISTORY AND PHYSICAL EXAMINATION CHIEF COMPLAINT: Back pain. HISTORY OF PRESENT ILLNESS: This is an overweight white female, who presented to our office with complaints of both neck and back pain. Back pain is greater than neck. Pain is radicular into her right leg. She rates it 8/10 for the past 7 months. It is sharp, accompanied by tightness. It is better with sitting, worse with walking, has weakness in her right foot. She has tried modification of activities. She has had lumbar epidural steroid injections with no help. She also has diabetes. PAST MEDICAL HISTORY: Positive for the aforementioned diabetes. She also has high blood pressure and she had a stent placed in September by Dr. Jimy Chamorro. PAST SURGICAL HISTORY: Three back surgeries, 2 C-sections, neck surgeries, 2 hernia surgeries. SOCIAL HISTORY: She is . She has quit smoking since her heart attack. CURRENT DOCTORS: Dr. Kaur and Dr. Jimy Chamorro. ALLERGIES: None. CURRENT MEDICATIONS: Insulin, metformin and Prilosec. REVIEW OF SYSTEMS: She denies any recent chest pain, shortness of breath or weight changes. She does have a chronic pain in her back. PHYSICAL EXAMINATION: GENERAL: This is an alert, oriented female in no acute distress. HEENT: Normocephalic. Pupils are equal, reactive to light. CHEST: Clear bilaterally to auscultation. HEART: S1 and S2. ABDOMEN: Obese, but soft. EXTREMITIES: DTRs are within normal limits. On her right leg, she has dorsiflexion strength of 3/5 with weakness. IMPRESSION: A grade II L5-S1 spondylolisthesis. PLAN: L4-S1 TLIF. The risk and benefits of surgery have been explained to her in detail. Risks include bleeding, failure to relieve symptoms, problems with anesthesia and . Time was allowed for questions, questions were answered. The patient wishes to proceed with surgery. TRANSINT:[id number] Voice Confirmation ID: [id number] DOCUMENT ID: [id number] Dictated By: MARIELENA CARDENAS I have interviewed/examined the above patient and agree with these documented findings. HISTORY AND PHYSICAL [id number] LOWELLCHRIS MÁRQUEZ,KERLINE Barron MD at 1313 at 1031 CC: [id number] DICTATION DATE: 04/30/17 1505 INSHORE UNDERSEA WARFARE OFFICER: 04/30/17 1749 [facility] [address] [id number]
--- NOTE | 2017-05-01 13:33 | NUR ---
NOTIFIED ANESTHESIA OF SCLERAL EDEMA. DR MONTES EXAMINED PT IN RECOVERY ROOM.
--- NOTE | 2017-05-01 15:00 | NUR ---
PATIENT TO ROOM AT THIS TIME WITH IV INTACT. NO COMPLAINTS, VS STABLE. TERRY DRAINS INTACT AND COMPRESSED. BSCDS PLUGGED IN AND TURNED ON. PATIENT FACIAL SWELLING FROM SURGERY. FAMILY AT BEDSIDE. CALL LIGHT WITHIN REACH.
--- NOTE | 2017-05-01 15:50 | NUR ---
PATIENT GANG BORE OPERATOR STARTED AT THIS TIME. RECIEVED PAIN MEDS 1 HOUR AGO AND STATED NOT HELPING. EXPLAINED HOW TO USE GANG BORE OPERATOR. VERBALIZED UNDERSTANDING. IV INTACT. VS STABLE. NO COMPLAINTS. CALL LIGHT WITHIN REACH.
--- NOTE | 2017-05-01 18:17 | NUR ---
PATIENT IN BED WITH IV INTACT. NO COMPLAINTS. TERRY X 2 WITH DRESSING TO BACK CDI. TOLERATED CLEAR LIQUIDS, ADVANCED TO FULLS. BSCDS ON AND WORKING. FAMILY AT BEDSIDE. VS STABLE. CALL LIGHT WITHIN REACH.
--- NOTE | 2017-05-01 19:00 | NUR ---
BEDSIDE REPORT RECEIVED AND CARE OF PT ASSUMED. PT LYING IN SUPINE POSITION VISITING WITH FAMILY MEMBER. IV IN LEFT FA PATENT WITH NS INFUSING AT 75 ML / HR. SUPERVISOR LOADING / MORPHINE IN USE FOR PAIN CONTROL. INCISION WELL APPROXIMATED ON LOWER BACK. LOPEZ CATHETER DRAINING TO GRAVITY WITY YELLOW URINE IN COLLECTION BAG. WILL MONITOR CLOSELY FOR NEEDS.
--- NOTE | 2017-05-01 21:07 | NUR ---
HS MEDICATIONS GIVEN. FSBS 280 AT THIS CHECK REQUIRING COVERAGE WITH 6 UNITS OF HUMALOG PER SLIDING SCALE. SHACK OF MILK GIVEN PER REQUEST.
--- NOTE | 2017-05-01 23:18 | NUR ---
RE-FILLED MORPHINE REGULATORY AFFAIRS ASSOCIATE AND STARTED NEW IV BAG. PT RESTING QUIETLY AT THIS TIME. SIDE RAILS UP X2 FOR SAFETY. CALL LIGHT WITHIN REACH.
[2017-05-02] VITALS: BP 100/54
[2017-05-02 04:00] VITALS: BP 115/56
[2017-05-02 05:21] LABS: BASOPHILS 0.3 % (0-2); EOSINOPHILS 0.9 % (0-7); HEMATOCRIT 30.3 % (36.0-48.0); HEMOGLOBIN 9.9 g/dL (12-16); IMMATURE GRANULOCYTES 0.1 % (0-5); LYMPHOCYTES 24.5 % (15-50); MCH 29.3 pg (26.0-34.0); MCHC 32.7 g/dL (31.0-37.0); MEAN PLATELET VOLUME 9.8 fL (7.4-10.4); MONOCYTES 10.2 % (2-11); PLATELET COUNT 260 10x3/uL (130-400); RBC 3.38 10x6/uL (4.00-5.40); RDW 14.6 % (11.5-14.5)
[2017-05-02 05:22] LABS: MCV 89.6 fL (80.0-100.0); WBC 7.7 10x3/uL (4.8-10.8)
[2017-05-02 05:49] LABS: ANION GAP 15.1 mmol/L (8-16); CALCIUM 7.8 mg/dL (8.5-10.1); CARBON DIOXIDE 22.3 mmol/L (21.0-32.0); CREATININE - SERUM 1.1 mg/dL (0.6-1.3); POTASSIUM - SERUM 4.4 mmol/L (3.5-5.1)
--- NOTE | 2017-05-02 06:00 | NUR ---
BLOOD SUGAR 209 THIS AM. COVERED WITH 4 UNITS OF HUMALOG PER SLIDING SCALE.
--- NOTE | 2017-05-02 06:17 | NUR ---
ADVANCED DIET TO DIABETIC DIET PER ORDER. PT TOLERATING ALL LIQUIDS WELL.
--- NOTE | 2017-05-02 06:34 | OP ---
PATIENT NAME: BELA ETIENNE MEDICAL RECORD: [id number] :60 LOCATION:D D.2225 ADMISSION DATE: SURGEON: KERLINE CHRISTOPHER MD DATE OF OPERATION: 05/01/2017 PREOPERATIVE DIAGNOSES: 1. Right L5 radiculopathy. 2. L5-S1 spondylolisthesis (grade II). PROCEDURES PERFORMED. 1. Application of intervertebral biomechanical device to be a posterior interbody approach (Nuvasive MAS PLIF cage) at L5-S1. 2. Posterior interbody arthrodesis with endplate preparation with curettes via TLIF approach at L5-S1 using autograft. 3. Posterior segmental instrumentation in the form of bilateral pedicle screws at L4, L5 and S1. 4. Posterolateral arthrodesis at L4-L5 with use of autograft. 5. L5 bilateral laminectomy with right L5 medial facetectomy for spinal canal and nerve root decompression. FINDINGS: No durotomy; EMG screw stimulation within normal limits after final screw placement. SPECIMENS: None. COMPLICATIONS: None apparent. ESTIMATED BLOOD LOSS: 350 mL. HISTORY OF PRESENT ILLNESS: Bela Etienne is a pleasant 57-year-old female, who presented as an outpatient with progressive severe lower back pain and right lower extremity radiculopathy consistent with L5 radiculopathy and right dorsiflexion weakness. Imaging was consistent with an L5-S1 grade II spondylolisthesis and nerve root compression. I had an extensive discussion with her regarding imaging findings and risks, benefits and options for continued conservative therapy versus operative intervention in the form of L4-S1 fixation and decompression. She ultimately chose to undergo operative intervention and the risks and benefits were discussed with her in detail. DESCRIPTION OF PROCEDURE: Ms. Etienne was identified by anesthesia team, transferred to the operative theater, where general endotracheal anesthesia commenced and all appropriate lines and tubes were placed. She was gently transferred over in the prone position on chest bolsters with her pressure points padded. Arms placed in superman position and eyes were accounted for by anesthesia team. Initially, using biplanar fluoroscopy, I planned MAS TLIF with 2 paraspinal incisions was planned and initially marked; however, due to technical issues with the anatomy and x-rays, this was ultimately stopped and a new open L4-S1 plan was developed. As such, 2 paraspinal incisions were irrigated out and closed with inverted interrupted 2-0 Vicryl sutures. L4-S1 midline incision was then marked and infiltrated with 1% lidocaine. Please note, a timeout was performed prior to start of procedure and agreed to by those present. The patient did receive 4 mg IV dexamethasone and IV antibiotics prior to the start of the procedure. A #10 blade was used to make an initial skin incision and Bovie electrocautery was used to perform a standard midline posterior approach to the new midline incision. Self-retaining retractors were OPERATIVE REPORT [id number] BELA ETIENNE placed in the field. Entry points were identified and an acquisition span with the [place] system was performed. Using the neuro navigation, pedicle screws were placed at L4, L5 and S1 under continuous EMG stimulation with the [employer] EMG System. On post-implantation, x-rays was apparent that the L5 and S1 screws need to be repositioned. This occurred under sequential AP and lateral fluoroscopy until the appropriate trajectories were achieved. An x-ray after repositioning of the screws was taken and showed screw position to be in appropriate position on the 3D C-arm spin. A 5.5 x 45 mm NuVasive Reline pedicle screws were placed at L4 bilaterally, a 6.5 x 50 mm at L5 bilaterally and 7.5 x 40 mm at S1 on the left and 7.5 x 45 mm at S1 on the right. The final EMG nerve root stimulation for this revealed no nerve root responses lower than 20 milliamps at any screw position. The osteotome and a combination of Kerrison rongeurs, Leksell rongeurs and again the osteotome was used to perform an L5 laminectomy and right L5 medial facetectomy. Kerrison was used to smoothen the edge of the bony decompression and to decompress extensively the right L5 nerve root. The thecal sac was gently retracted medially uncovering L5-S1 disc space. A #10 blade was used to make a square cut in the disc and pituitary rongeurs and ultimately gloria were used to perform the radical discectomy. The ring curette and endplate rasp were used to extensively prepare the endplates. Please note that the removed bone was then stripped freed of soft tissue and morcellized with the automatic bone mill. Ultimately, a 13-mm trial was found to be appropriate for the L5-S1 cage. Autograft was delivered via the bone funnel to the L5-S1 interspace and a 13 x 9 x 28 mm NuVasive mass PLIF cage which had been packed with autograft was then delivered at L5-S1 interspace in the appropriate position. Copious irrigation was used to the tune of 2 total liters throughout the procedure. A 65-mm rods were then laid into position and set screws were applied and ultimately final tightened without incident. The L4-L5 facet joints bilaterally were decorticated with a high-speed matchstick drill and curetted free of the synovium with the angled curette and autograft was packed in to these locations for arthrodesis. Final x-rays were taken showing implants in appropriate position. Two 10-Ukrainian round drains were tunneled away superiorly away from incision and laid in the subfascial space. Approximately three-quarters of a gram of vancomycin powder was sprinkled in the subfascial space. Please note, a small amount of Gelfoam hemostatic matrix was used in the form of Surgiflo, was used to control small amount of epidural hemorrhage. There is no significant hemorrhage prior to closure. Fascia was reapproximated with interrupted 0 Vicryl sutures in a watertight fashion. Subdermal region was closed with inverted interrupted 2-0 Vicryl sutures. The drains were sutured into place with Vicryl sutures and all 3 incisions were closed with a running 4-0 Monocryl. Areas were cleaned and dried with a wet and dry dressing. Antibiotic ointment and adhesive dressings were placed. All sponge and needle counts were correct times 2 at the end of the case. Again, the final x-rays showed implants to be in appropriate position. The patient was then returned to anesthesia team for reversal and extubation. There were no apparent complications. There was no durotomy. I did discuss the operation with the patient's family member in the waiting room immediately postoperatively. TRANSINT:[id number] Voice Confirmation ID: [id number] DOCUMENT ID: [id number] OPERATIVE REPORT [id number] BELA ETIENNE JUSTIN T MD at 0634 CC: [id number] DICTATION DATE: 05/01/17 1323 LABORATORY TECHNICIAN: 05/01/172004 [facility] [address] [place] [address]
--- NOTE | 2017-05-02 07:00 | NUR ---
REPORT RECIEVED ASSUMED CARE. PATIENT IN BED WITH IV INTACT. NO COMPLAINTS OR SIGNS OF DISTRESS. CALL LIGHT WITHIN REACH.
--- NOTE | 2017-05-02 07:46 | NUR ---
PATIENT ASSESSMENT COMPLETE, VS STABLE. IV INTACT. TERRY X 2 CDI. LOPEZ INTACT. NOTIFIED PATIENT THAT DRAINS WILL BE TAKEN OUT TODAY. VERBALIZED UNDERSTANDING. PAIN LEVEL 0/10 AT THIS TIME. BSCDS ON AND WORKING. CALL LIGHT WITHIN REACH.
[2017-05-02 08:35] VITALS: BP 133/62
--- NOTE | 2017-05-02 10:43 | NUR ---
PATIENT DRESSING TO LOWER BACK CHANGED AT THIS TIME. INCISIONS X 3 CLEAN, DRY, AND INTACT. SMALL AMOUNT OF PINK DRAINAGE TO OLD DRESSINGS. NO NEW DRAINAGE. NO REDNESS OR SIGNS OF INFECTION. TERRY DRAINS X 2 PULLED ORDERED. DRESSING PLACED OVER EACH SITE. PATIENT TOLERATED WITH SMALL AMOUNT OF PAIN. LOPEZ REMOVED WELL. PATIENT SITTING UP IN CHAIR WITH IV INTACT. NO COMPLAINTS. CALL LIGHT WITHIN REACH.
--- NOTE | 2017-05-02 11:50 | NUR ---
PATIENT UP TO BR WITH ASSIST. NO COMPLAINTS AT THIS TIME. FAMILY AT SIDE. EXPLAINED TO PULL CHORD WHEN FINISHED. CALL LIGHT WITHIN REACH.
[2017-05-02 12:30] VITALS: BP 112/49
[2017-05-02 15:47] VITALS: BP 95/46
--- NOTE | 2017-05-02 18:43 | NUR ---
PT DOING WELL, RESTING, FAMILY AT BEDSIDE. NO COMPLAINTS AT THIS TIME. CALL LIGHT WITHIN REACH.
--- NOTE | 2017-05-02 19:03 | NUR ---
PT UNABLE TO VOID SINCE LOPEZ D/C'D. BLADDER SCAN PERFORMED WITH 47ML RESIDUAL. WILL INCREASE FLUIDS. STEFANI DUNBAR NOTIFIED. WILL CON'T TO MONITOR.
--- NOTE | 2017-05-02 19:15 | NUR ---
BEDSIDE REPORT RECEIVED AND CARE OF PT ASSUMED. IV IN LEFT FA SALINE LOCKED. DRESSING ON BACK CLEAN AND DRY. WILL MONITOR CLOSELY FOR NEEDS.
[2017-05-02 20:00] VITALS: BP 131/62
--- NOTE | 2017-05-02 21:10 | NUR ---
CHANGED DRESSING ON BACK. INCISIONS WELL APPROXIMATED WITH NO DRAINAGE, REDNESS OR SWELLING.
--- NOTE | 2017-05-02 21:34 | NUR ---
HS MEDICATIONS GIVEN. FSBS 221 REQUIRING COVERAGE WITH INSULIN PER SLIDING SCALE.
--- NOTE | 2017-05-02 22:00 | NUR ---
PT HAS BEEN UP TO RESTROOM TO VOID X2 SINCE 7 PM.
[2017-05-03] VITALS: BP 145/80
--- NOTE | 2017-05-03 00:02 | NUR ---
GAVE NORCO 10 X1 PO PER PRN ORDER FOR PAIN AND ELEVATED TEMP OF 100.1 DEGREES.
[2017-05-03 04:00] VITALS: BP 136/68
--- NOTE | 2017-05-03 04:00 | NUR ---
TEMP DOWN TO 99.2 DEGREES THIS CHECK.
[2017-05-03 04:25] LABS: BASOPHILS 0.3 % (0-2); EOSINOPHILS 1.3 % (0-7); HEMATOCRIT 27.8 % (36.0-48.0); HEMOGLOBIN 9.1 g/dL (12-16); IMMATURE GRANULOCYTES 0.3 % (0-5); LYMPHOCYTES 20.2 % (15-50); MCH 29.1 pg (26.0-34.0); MCHC 32.7 g/dL (31.0-37.0); MCV 88.8 fL (80.0-100.0); MEAN PLATELET VOLUME 9.7 fL (7.4-10.4); MONOCYTES 9.5 % (2-11); NEUTROPHILS 68.4 % (40-80); RBC 3.13 10x6/uL (4.00-5.40); RDW 14.1 % (11.5-14.5); WBC 7.7 10x3/uL (4.8-10.8)
[2017-05-03 04:27] LABS: PLATELET COUNT 202 10x3/uL (130-400)
[2017-05-03 04:42] LABS: ANION GAP 10.8 mmol/L (8-16); CALCIUM 8.4 mg/dL (8.5-10.1); CARBON DIOXIDE 24.4 mmol/L (21.0-32.0); CREATININE - SERUM 1.1 mg/dL (0.6-1.3); POTASSIUM - SERUM 4.2 mmol/L (3.5-5.1)
--- NOTE | 2017-05-03 07:30 | NUR ---
RECIEVED PT DURING WALKING ROUNDS. PT RESTING IN BED WITH COMPLAINTS OF PAIN OF PAIN OF A 6 ON A SCALE OF 1-10. NO MEDICATION TO BE GIVEN AT THIS TIME. ASSESSMENT DONE PER FLOWSHEET. BED IN LOW POSITION AND CALL LIGHT WITHIN REACH. WILL CONTINUE TO MONITOR.
[2017-05-03 08:40] VITALS: BP 102/40; BP 124/55
--- NOTE | 2017-05-03 08:55 | NUR ---
LOPEZ CATH REMOVED PER ORDER AT THIS TIME. PT TOLERATED WELL. 250CC EMPTIED. BED IN LOW POSITION AND CALL LIGHT WITHIN REACH. WILL CONTINUE TO MONITOR.
[2017-05-03 12:48] VITALS: BP 134/56
[2017-05-03 16:13] VITALS: BP 109/62
[2017-05-03 20:00] VITALS: BP 124/61
--- NOTE | 2017-05-03 20:00 | NUR ---
ASSESSMENT PER FLOW SHEET.PT WITHOUT DISTRESS.INCISION TO LOWER BACK X3 WITHOUT DRAINAGE.2 SMALL ROUND AREAS NOTED AT TOP OF INCISIONS. PT DENIES PAIN. ASSIST UP TO BATHROOM AND BACK TO BED.CALL LIGHT IN REACH.
[2017-05-04] VITALS (19 sets, daily range): BP systolic 118–173; BP diastolic 57–106
--- NOTE | 2017-05-04 02:46 | NUR ---
RESTING QUIETLT,WITHOUT SIGNS OF DISTRESS.
[2017-05-04 05:45] LABS: BASOPHILS 0.2 % (0-2); EOSINOPHILS 2.9 % (0-7); HEMATOCRIT 25.1 % (36.0-48.0); HEMOGLOBIN 8.3 g/dL (12-16); IMMATURE GRANULOCYTES 0.3 % (0-5); LYMPHOCYTES 16.5 % (15-50); MCH 29.1 pg (26.0-34.0); MCHC 33.1 g/dL (31.0-37.0); MCV 88.1 fL (80.0-100.0); MEAN PLATELET VOLUME 10.3 fL (7.4-10.4); MONOCYTES 8.2 % (2-11); NEUTROPHILS 71.9 % (40-80); PLATELET COUNT 214 10x3/uL (130-400); RBC 2.85 10x6/uL (4.00-5.40); RDW 14.1 % (11.5-14.5); WBC 6.6 10x3/uL (4.8-10.8)
[2017-05-04 06:07] LABS: ANION GAP 13.6 mmol/L (8-16); CALCIUM 8.6 mg/dL (8.5-10.1); CARBON DIOXIDE 22.8 mmol/L (21.0-32.0); CREATININE - SERUM 0.9 mg/dL (0.6-1.3); POTASSIUM - SERUM 4.4 mmol/L (3.5-5.1)
--- NOTE | 2017-05-04 07:35 | NUR ---
PATIENT RECEIVED SITTING UP ON SIDE OF BED ALERT. NO SIGNS OF DISTRESS NOTED. DENIES NEEDS. BED IN LOW POSITION. CALL LIGHT IN REACH.
--- NOTE | 2017-05-04 08:29 | NUR ---
PATIENT SITTING UP ON SIDE OF BED ALERT. NO SIGNS OF DISTRESS NOTED. SCHEDULED MEDICATION ADMINISTERED. DENIES NEEDS. BED IN LOW POSITION. CALL LIGHT IN REACH.
[2017-05-04] MEDS ORDERED: ROBAXIN-750750 MG PO (09:14)
[2017-05-04] MEDS ORDERED: COLACE100 MG PO (09:15)
[2017-05-04] MEDS ORDERED: HYDROCODONE-APA1 TAB PO (09:15)
[2017-05-04] MEDS ORDERED: VALIUM SYR10 MG/2 ML PO (09:16)
[2017-05-04 09:33] LABS: BASOPHILS 0.1 % (0-2); EOSINOPHILS 3.4 % (0-7); HEMATOCRIT 26.1 % (36.0-48.0); HEMOGLOBIN 8.7 g/dL (12-16); IMMATURE GRANULOCYTES 0.1 % (0-5); LYMPHOCYTES 19.4 % (15-50); MCH 29.3 pg (26.0-34.0); MCHC 33.3 g/dL (31.0-37.0); MCV 87.9 fL (80.0-100.0); MEAN PLATELET VOLUME 9.6 fL (7.4-10.4); MONOCYTES 9.5 % (2-11); NEUTROPHILS 67.5 % (40-80); PLATELET COUNT 203 10x3/uL (130-400); RBC 2.97 10x6/uL (4.00-5.40); RDW 13.9 % (11.5-14.5); WBC 7.3 10x3/uL (4.8-10.8)
--- NOTE | 2017-05-04 10:55 | NUR ---
ALERT IN BED. NO SIGNS OF DISTRESS NOTED. PRBC INITIATED PER ORDER. TRANSFUSING TO LEFT WRIST IV WITHOUT DIFFICULTY. IV PATENT. NO REDNESS OR INFLAMMATION NOTED. VITAL SIGNS STABLE. ACCU CHECK 253. INSULIN PER SLIDING SCALE. SIDE RAILS UP X2. BED IN LOW POSITION. CALL LIGHT IN REACH.
--- NOTE | 2017-05-04 12:55 | NUR ---
PRBC CONTINUE TO TRANSFUSE WITHOUT DIFFICULTY. VITAL SIGNS STABLE. SIDE RAILS UP X2. BED IN LOW POSITION. CALL LIGHT IN REACH.
--- NOTE | 2017-05-04 14:49 | NUR ---
ALERT IN BED. SECOND UNIT PRBC TRANSFUSING. NORCO PER PRN ORDER. NO FURTHER NEEDS VOICED. SIDE RAILS UP X2. BED IN LOW POSITION. CALL LIGHT IN REACH.
--- NOTE | 2017-05-04 17:10 | NUR ---
PATIENT SITTING UP ON SIDE OF BED EATING DINNER. TOLERATING WELL. SIDE RAILS UP X2. BED IN LOW POSITION. CALL LIGHT IN REACH.
[2017-05-04 18:57] LABS: HEMATOCRIT 31.6 % (36.0-48.0); HEMOGLOBIN 10.7 g/dL (12-16)
--- NOTE | 2017-05-04 19:20 | NUR ---
PATIENT RESTING IN BED AND DENIES NEEDS AT THIS TIME. BED IN LOWEST POSITION AND CALL LIGHT WITHIN REACH. ENCOURAGED THE PT TO CALL IF SHE HAS NEEDS.
--- NOTE | 2017-05-04 20:00 | NUR ---
PAGED DR. CHRISTOPHER IN REGARDS TO PT'S RESULTS
[2017-05-05] VITALS: BP 147/54
--- NOTE | 2017-05-05 07:30 | NUR ---
PATIENT RECEIVED SITTING UP IN CHAIR AT BEDSIDE. NO SIGNS OF DISTRESS NOTED. DENIES NEEDS. CALL LIGHT IN REACH.
[2017-05-05 07:52] VITALS: BP 177/73
[2017-05-05] MEDS ORDERED: VALIUM5 MG PO (09:00)
[2017-05-05 09:46] LABS: BASOPHILS 0.3 % (0-2); EOSINOPHILS 3.5 % (0-7); HEMATOCRIT 30.8 % (36.0-48.0); HEMOGLOBIN 10.4 g/dL (12-16); IMMATURE GRANULOCYTES 0.2 % (0-5); LYMPHOCYTES 15.5 % (15-50); MCH 29.1 pg (26.0-34.0); MCHC 33.8 g/dL (31.0-37.0); MEAN PLATELET VOLUME 9.8 fL (7.4-10.4); MONOCYTES 10.1 % (2-11); NEUTROPHILS 70.4 % (40-80); PLATELET COUNT 220 10x3/uL (130-400); RDW 14.1 % (11.5-14.5); WBC 6.5 10x3/uL (4.8-10.8)
[2017-05-05 09:59] LABS: RBC 3.58 10x6/uL (4.00-5.40)
--- NOTE | 2017-05-05 10:25 | NUR ---
D/C TEACHING AND PAPER PRESCRIPTIONS GIVEN TO PATIENT. STATES UNDERSTANDING. D/C HOME WITH FAMILY. TRANSFERRED DOWNSTAIRS VIA WHEELCHAIR WITH STAFF.
== END 2017-05-05 10:34 | disposition home or self-care (01) | DRG 460 ==
LOC: D.MS 05:30 → D.OPS 05:30 → D.PAN 07:30 → D.OPS 07:30 → D.MS 14:01 → D.OPS 14:02 → D.MS 14:02
PROVIDERS: ADMIT Neurological Surgery
PROC: 0SG30A1 (ICD-10-PCS; 2017-05-01)
PROC: 0ST40ZZ Resection of Lumbosacral Disc, Open Approach (ICD-10-PCS; 2017-05-01)
PROC: 0SG0071 Fusion of Lumbar Vertebral Joint with Autologous Tissue Substitute, Posterior Approach, Posterior Column, Open Approach (ICD-10-PCS; principal; 2017-05-01 07:30)
DX: M54.16 Radiculopathy, lumbar region (principal); M43.17 Spondylolisthesis, lumbosacral region; D50.0 Iron deficiency anemia secondary to blood loss (chronic); E11.9 Type 2 diabetes mellitus without complications; Z79.4 Long term (current) use of insulin; I10 Essential (primary) hypertension; Z87.891 Personal history of nicotine dependence

== ENCOUNTER → 2017-05-31 08:10 | Outpatient (CLI) | payer BC ==
[2017-05-01 14:11] VITALS: BMI 30.4
[~2017-05-31 08:10] MED LIST changes: +COLACE100 MG PO; +HYDROCODONE-APA1 TAB PO; +ROBAXIN-750750 MG PO; +VALIUM SYR10 MG/2 ML PO; +VALIUM5 MG PO
== END | disposition home or self-care (01) ==
LOC: D.RAD 08:00
DX: M48.06 Spinal stenosis, lumbar region (principal)

== ENCOUNTER → 2017-07-19 08:31 | Outpatient (CLI) | payer BC ==
[2017-05-01 14:11] VITALS: BMI 30.4
== END | disposition home or self-care (01) ==
LOC: D.RAD 08:15
DX: Z48.811 Encounter for surgical aftercare following surgery on the nervous system (principal); M43.17 Spondylolisthesis, lumbosacral region

== ENCOUNTER 2018-01-13 14:20 | Emergency (ER) | payer BC ==
[2017-05-01 14:11] VITALS: BMI 30.4
[2018-01-13 16:00] LABS: BASOPHILS 0.2 % (0-2); EOSINOPHILS 0.7 % (0-7); HEMATOCRIT 46.7 % (36.0-48.0); HEMOGLOBIN 16.2 g/dL (12-16); IMMATURE GRANULOCYTES 0.3 % (0-5); LYMPHOCYTES 12.4 % (15-50); MCH 29.5 pg (26.0-34.0); MCHC 34.7 g/dL (31.0-37.0); MCV 85.1 fL (80.0-100.0); MEAN PLATELET VOLUME 10.8 fL (7.4-10.4); MONOCYTES 3.9 % (2-11); NEUTROPHILS 82.5 % (40-80); PLATELET COUNT 248 10x3/uL (130-400); RBC 5.49 10x6/uL (4.00-5.40); RDW 13.2 % (11.5-14.5); WBC 9.1 10x3/uL (4.8-10.8)
[2018-01-13 16:12] LABS: KETONE - SERUM NEGATIVE (NEGATIVE)
[2018-01-13 16:19] LABS: ALBUMIN 3.9 g/dL (3.4-5.0); ALKALINE PHOSPHATASE 151 U/L (46-116); ALT (SGPT) 38 U/L (10-68); BILIRUBIN - TOTAL 0.49 mg/dL (0.2-1.3); CALC OSMOLALITY 292 mosm/kg (275-300); CARBON DIOXIDE 24.5 mmol/L (21.0-32.0); CHLORIDE - SERUM 104 mmol/L (98-107); CREATININE - SERUM 0.9 mg/dL (0.6-1.3); GLUCOSE 222 mg/dL (74-106); POTASSIUM - SERUM 4.6 mmol/L (3.5-5.1); PROTEIN - SERUM 8.2 g/dL (6.4-8.2); SODIUM 140 mmol/L (136-145); UREA NITROGEN 31 mg/dL (7-18); eGFR NON AFRICAN AMERICAN 68 mL/min (90-120)
[2018-01-13 18:34] LABS: APPEARANCE CLEAR (CLEAR); BILIRUBIN NEGATIVE (NEGATIVE); COLOR YELLOW (YELLOW); GLUCOSE 100 mg/dL (NEGATIVE); KETONE NEGATIVE (NEGATIVE); NITRITE NEGATIVE (NEGATIVE); PROTEIN TRACE mg/dL (NEGATIVE); SPECIFIC GRAVITY 1.015 (1.005-1.020); UROBILINOGEN NORMAL (NORMAL)
== END 2018-01-13 20:30 | disposition home or self-care (01) ==
LOC: D.ER 14:20
PROVIDERS: Emergency Medicine
DX: E11.65 Type 2 diabetes mellitus with hyperglycemia (principal); Z79.4 Long term (current) use of insulin

== ENCOUNTER → 2018-04-24 20:34 | Outpatient (CLI) | payer MEDICAID ==
[2017-05-01 14:11] VITALS: BMI 30.4
== END | disposition home or self-care (01) ==
LOC: D.MAMMO 04-11 16:00
DX: Z12.31 Encounter for screening mammogram for malignant neoplasm of breast (principal)

== ENCOUNTER 2018-06-27 19:00 | Outpatient (CLI) | payer MEDICAID ==
[2017-05-01 14:11] VITALS: BMI 30.4
== END 2018-06-27 23:59 | disposition home or self-care (01) ==
LOC: D.MAMMO 19:00
DX: R92.8 Other abnormal and inconclusive findings on diagnostic imaging of breast (principal)

== ENCOUNTER → 2018-08-12 10:33 | Outpatient (CLI) | payer OTHER ==
[2017-05-01 14:11] VITALS: BMI 30.4
== END | disposition home or self-care (01) ==
LOC: D.US 10:33
DX: R92.8 Other abnormal and inconclusive findings on diagnostic imaging of breast (principal)

== ENCOUNTER 2019-04-22 12:13 | Observation (INO) | payer MEDICAID ==
[~2019-04-22] VITALS: Ht 167.6 cm; Wt 84.1 kg
[2019-04-22] MEDS ORDERED: GLUCOTROL 5 MG T5 MG PO (12:23)
[2019-04-22] MEDS ORDERED: NEURONTIN600 MG PO (12:23)
[2019-04-22] MEDS ORDERED: COZAAR25 MG PO (12:24)
[2019-04-22] MEDS ORDERED: COREG 3.1253.125 MG PO (12:24)
[2019-04-22 13:22] LABS: HEMATOCRIT 39.9 % (36.0-48.0); HEMOGLOBIN 14.2 g/dL (12-16); LYMPHOCYTES 31.2 % (15-50); MCH 30.4 pg (26.0-34.0); MCHC 35.6 g/dL (31.0-37.0); MCV 85.4 fL (80.0-100.0); MEAN PLATELET VOLUME 9.8 fL (7.4-10.4); NEUTROPHILS 60.7 % (40-80); PLATELET COUNT 227 10x3/uL (130-400); RBC 4.67 10x6/uL (4.00-5.40); RDW 12.9 % (11.5-14.5); WBC 6.1 10x3/uL (4.8-10.8)
[2019-04-22 13:24] LABS: ALBUMIN 3.3 g/dL (3.4-5.0); ALKALINE PHOSPHATASE 143 U/L (46-116); ALT (SGPT) 20 U/L (10-68); BILIRUBIN - TOTAL 0.33 mg/dL (0.2-1.3); CALC OSMOLALITY 279 mosm/kg (275-300); CARBON DIOXIDE 27.3 mmol/L (21.0-32.0); CHLORIDE - SERUM 102 mmol/L (98-107); GLUCOSE 185 mg/dL (74-106); POTASSIUM - SERUM 3.9 mmol/L (3.5-5.1); PROTEIN - SERUM 7.1 g/dL (6.4-8.2); SODIUM 136 mmol/L (136-145); UREA NITROGEN 21 mg/dL (7-18); eGFR NON AFRICAN AMERICAN 60 mL/min (90-120)
[2019-04-22 13:34] LABS: MAGNESIUM - SERUM 1.6 mg/dL (1.8-2.4); PRO BNP 88 pg/mL (0-125); THYROID STIMULATING HORMONE 1.04 uIU/mL (0.36-3.74); TROPONIN-I < 0.017 ng/mL (0.000-0.060)
--- NOTE | 2019-04-22 13:43 | NUR ---
URINE SAMPLE SENT TO LAB AT THIS TIME.
[2019-04-22 14:11] LABS: APPEARANCE HAZY (CLEAR); BACTERIA FEW /hpf (NONE SEEN); BILIRUBIN NEGATIVE (NEGATIVE); COLOR YELLOW (YELLOW); EPITHELIAL CELLS OCC /hpf (0-5); GLUCOSE 1000 mg/dL (NEGATIVE); KETONE NEGATIVE (NEGATIVE); MUCUS <1+ /lpf (NONE SEEN); NITRITE NEGATIVE (NEGATIVE); PROTEIN 1+ mg/dL (NEGATIVE); RED CELLS - URINE RARE /hpf (0-5); SPECIFIC GRAVITY 1.015 (1.005-1.020); UROBILINOGEN NORMAL (NORMAL); WHITE CELLS - URINE OCC /hpf (0-5); YEAST <1+ /hpf (NONE SEEN)
[2019-04-22 14:43] VITALS: BP 173/89
--- NOTE | 2019-04-22 14:51 | NUR ---
REPORT CALLED TO JOANNE ALMANZAR AT THIS TIME. PT LEAVING ED VIA WHEELCHAIR FOR MRI DEPT. PROCEDURE MANAGER NOTIFIED THAT PT WILL NEED TO BE TAKEN TO ASSIGNED ROOM 2102 ONCE MRI COMPLETE. NO SIGNS OF DISTRESS NOTED WHEN PT LEAVING.
--- NOTE | 2019-04-22 15:34 | NUR ---
B/P REPORTED TO DR. SHAW. PHYSICIAN AT . WILL CONT. PLAN OF CARE.
[2019-04-22 15:43] VITALS: BP 193/103; Ht 167.6 cm; Wt 84.1 kg
[2019-04-22 16:00] VITALS: BP 193/103
--- NOTE | 2019-04-22 16:20 | NUR ---
patient is here from er with what she thought was a longer lasting tia. SHE HAS NO LINGERING SYMPTOMS. SHE DID TAKE HER AT HOME MEDICATIONS TODAY. SHE IS ALERT AND ORIENTED WITH SIGHT SLUGGISH CONSTRICTION IN HER RIGHT EYE. SHE REPORTS THAT HER WEAKNESS AND SYMPTOMS THIS MORNING WERE LEFT SIDE WEAKNESS AND NUMBNESS THAT HAS NOW RESOLVED. THE SYMPTOMS LASTED 15 MINUTES THIS TIME. OBI REPORTS THAT LAST TIME SHE HAD ONE IT LASTED 5 MINUTES.
[2019-04-22] MEDS ORDERED: LANTUS SOL100 UNIT/1 SC (16:33)
--- NOTE | 2019-04-22 19:32 | NUR ---
EVENING ROUNDS MADE. PT SITTING UP IN BED RESTING. DENIES PAIN AT THIS TIME. A/O X 4. FAMILY AT BEDSIDE. DENIES FURTHER NEEDS AT THIS TIME. BED LOWERED AND LOCKED. CL IN REACH. WILL CTM.
[2019-04-22 20:00] VITALS: BP 158/74
--- NOTE | 2019-04-22 21:20 | NUR ---
VITALS STABLE. PT TOOK MEDS WITHOUT DIFFICULTY. BS 310, TREATED PER SLIDING SCALE. DENIES PAIN AT THIS TIME. NO FURTHER CONCERNS. BED LOWERED AND LOCKED. CL IN REACH. WILL CTM.
--- NOTE | 2019-04-23 00:43 | NUR ---
I have reviewed this patient and I concur with the Shift Assessment completed by the Licensed Practical Nurse today this shift.
[2019-04-23 04:30] VITALS: BP 163/93
--- NOTE | 2019-04-23 05:07 | NUR ---
PT BP 163/93, CATAPRES GIVEN PO. WILL CTM.
[2019-04-23 06:03] LABS: BASOPHILS 0.3 % (0-2); EOSINOPHILS 3.6 % (0-7); HEMOGLOBIN 13.7 g/dL (12-16); IMMATURE GRANULOCYTES 0.3 % (0-5); LYMPHOCYTES 30.6 % (15-50); MCH 29.9 pg (26.0-34.0); MCHC 35.1 g/dL (31.0-37.0); MCV 85.2 fL (80.0-100.0); MEAN PLATELET VOLUME 10.1 fL (7.4-10.4); MONOCYTES 9.4 % (2-11); NEUTROPHILS 55.8 % (40-80); PLATELET COUNT 200 10x3/uL (130-400); RBC 4.58 10x6/uL (4.00-5.40); WBC 6.4 10x3/uL (4.8-10.8)
[2019-04-23 06:34] LABS: CALC OSMOLALITY 286 mosm/kg (275-300); CALCIUM 8.5 mg/dL (8.5-10.1); CARBON DIOXIDE 29.5 mmol/L (21.0-32.0); CHLORIDE - SERUM 105 mmol/L (98-107); CHOL - HDL RATIO 8.8 ratio (2.3-4.1); CHOLESTEROL, TOTAL 238 mg/dL (0-200); CREATININE - SERUM 0.9 mg/dL (0.6-1.3); GLUCOSE 178 mg/dL (74-106); HDL CHOLESTEROL 27 mg/dL (32-96); SODIUM 141 mmol/L (136-145); TRIGLYCERIDE 821 mg/dL (30-200); UREA NITROGEN 17 mg/dL (7-18); eGFR NON AFRICAN AMERICAN 68 mL/min (90-120)
[2019-04-23 08:32] VITALS: BP 153/87
[2019-04-23] MEDS ORDERED: COZAAR25 MG PO (11:37)
[2019-04-23 11:50] VITALS: BP 146/75
--- NOTE | 2019-04-23 15:00 | MORECARE ---
CASE MANAGEMENT DISCHARGE SUMMARY PATIENT: CHRIS ETIENNE UNIT: [id number] ADM DATE: 04/22/19 AGE: 59 : 60 SEX: F ROOM/BED: D.2103 AUTHOR: ELICIA PRAJAPATI PHYSICIAN: REFERRING PHYSICIAN: JAE RIOS MD DATE OF SERVICE: 04/23/19 Discharge Plan Patient Name: CHRIS ETIENNE Facility: [facility]:[place] : 1960 Planned Disposition: Home Anticipated Discharge Date: 04/23/19 Discharge Date: 04/23/2019 Expected LOS: 1 Initial Reviewer: [email or web address] Initial Review Date: 04/23/2019 Generated: 04/23/19 4:00 pm Patient Name: CHRIS ETIENNE Page [id number] at 1500 All edits/amendments must be made on the electronic document DICTATION DATE: 04/23/199 FEATHER MIXER: ANNELISE 04/23/19 1459 RPT#: [id number] DC DATE:04/23/19 STATUS: DIS IN [facility] [address] [place] [address] END OF REPORT
--- NOTE | 2019-04-23 16:09 | MORECARE ---
CASE MANAGEMENT DISCHARGE SUMMARY PATIENT: CHRIS ETIENNE UNIT: [id number] ADM DATE: 04/22/19 AGE: 59 : 60 SEX: F ROOM/BED: D.2103 AUTHOR: ELICIA PRAJAPATI PHYSICIAN: REFERRING PHYSICIAN: JAE RIOS MD DATE OF SERVICE: 04/23/19 Discharge Plan Patient Name: CHRIS ETIENNE Facility: [facility]:[place] : 1960 Planned Disposition: Home Anticipated Discharge Date: 04/23/19 Discharge Date: 04/23/2019 Expected LOS: 1 Initial Reviewer: [email or web address] Initial Review Date: 04/23/2019 Generated: 04/23/19 5:09 pm Comments DCP- Discharge Planning Updated by [email or web address]: Rolanda Mosquera on 04/23/19 3:[address] Plan F/U with PCP in 1 week BP Diary for review Increased [place] to BID for better HTN control Last DP export: 04/23/19 2:00 p Patient Name: CHRIS ETIENNE Page [phone] at 1609 All edits/amendments must be made on the electronic document DICTATION DATE: 04/23/191608 SENIOR GAME DEVELOPER: ANNELISE 04/23/191608 RPT#: [id number] DC DATE:04/23/19 STATUS: DIS IN [place] [address] [place] [address] END OF REPORT
== END 2019-04-23 13:35 | disposition home or self-care (01) ==
LOC: D.ER 12:13 → D.M2 14:11 → OBSVTIME 14:11 → D.M2 04-23 13:35
PROVIDERS: Emergency Medicine; Family Medicine; ADMIT Family Medicine; ATTEND Family Medicine
DX: G45.9 Transient cerebral ischemic attack, unspecified (principal); Z86.73 Personal history of transient ischemic attack (TIA), and cerebral infarction without residual deficits; I10 Essential (primary) hypertension; E78.5 Hyperlipidemia, unspecified; E11.9 Type 2 diabetes mellitus without complications; F17.200 Nicotine dependence, unspecified, uncomplicated